=== PATIENT | male | born 1975 | race Two or more races ===

== ENCOUNTER 2018-08-07 22:57 | Inpatient (IN) | payer SELFPAY ==
[~2018-08-07] VITALS: Ht 170.2 cm; Wt 105.8 kg
--- NOTE | 2018-08-07 23:23 | PHYS DOC ---
Past Medical History Past Medical History: No Pertinent History Past Surgical History: No Surgical History Alcohol Use: Occasionally Drug Use: None Adult General Chief Complaint Chief Complaint: ABDOMINAL PAIN HPI HPI Patient is a 42 year old male who presents with right upper quadrant abdominal pain that started approximately 2 hours prior to arrival. Patient has had 6-7 episodes of vomiting which do seem to improve the pain since this started. No diarrhea. No fevers. No blood in the emesis. No change from his usual diet today. No alcohol today. Last alcohol was approximately 4 days ago. No sick family members or contacts. Nothing seems to make the discomfort worse. Patient rates the pain as 10 out of 10.[] Review of Systems Review of Systems Constitutional: Denies fever or chills [] Eyes: Denies change in visual acuity, redness, or eye pain [] HENT: Denies nasal congestion or sore throat [] Respiratory: Denies cough or shortness of breath [] Cardiovascular: No chest pain or palpitations[] GI: See history of present illness[] : Denies dysuria or hematuria [] Musculoskeletal: Denies back pain or joint pain [] Integument: Denies rash or skin lesions [] Neurologic: Denies headache, focal weakness or sensory changes [] Endocrine: Denies polyuria or polydipsia [] All other systems were reviewed and found to be within normal limits, except as documented in this note. Current Medications Current Medications Current Medications Medications (Trade) Dose Ordered Sig/Homer Start Time Stop Time Status Last Admin Dose Admin Hyoscyamine (Anaspaz) 0.125 mg ONCE ONCE 08/08/18 00:30 08/08/18 00:31 DC 08/08/18 00:13 0.125 MG Info (CONTRAST GIVEN -- Rx MONITORING) 1 each PRN DAILY PRN 08/08/18 00:15 08/10/18 00:14 Iohexol (Omnipaque 300 Mg/ml) 75 ml 1X ONCE 08/08/18 00:30 08/08/18 00:31 DC Ketorolac Tromethamine (Toradol 30mg Vial) 30 mg 1X ONCE 08/08/18 00:30 08/08/18 00:31 DC 08/08/18 00:13 30 MG Morphine Sulfate (Morphine Sulfate) 4 mg 1X ONCE 08/08/18 04:00 08/08/18 04:01 08/08/18 03:54 4 MG Piperacillin Sod/ Tazobactam Sod 3.375 gm/Sodium Chloride 50 ml @ 100 mls/hr 1X ONCE 08/08/18 04:00 08/08/18 04:29 UNV Prochlorperazine Edisylate (Compazine) 5 mg 1X ONCE 08/08/18 00:30 08/08/18 00:31 DC 08/08/18 00:13 5 MG Sodium Chloride 1,000 ml @ 1,000 mls/hr Q1H 08/08/18 00:30 08/08/18 01:29 DC 08/08/18 00:11 1,000 MLS/HR Allergies Allergies Allergies Coded Allergies Type Severity Reaction Last Updated Verified No Known Drug Allergies 08/07/18 No Physical Exam Physical Exam Constitutional: Well developed, well nourished, moderate discomfort, non-toxic appearance. [] HENT: Normocephalic, atraumatic, bilateral external ears normal, oropharynx moist, no oral exudates, nose normal. [] Eyes: PERRLA, EOMI, conjunctiva normal, no discharge. [] Neck: Normal range of motion, no tenderness, supple, no stridor. [] Cardiovascular:Heart rate regular rhythm, no murmur [] Lungs & Thorax: Bilateral breath sounds clear to auscultation [] Abdomen: Bowel sounds normal, soft, right upper quadrant tenderness, no McBurney 's point tenderness, and questionable Richard's sign, no rebound, no guarding, no rigidity, no masses, no pulsatile masses. [] Skin: Warm, dry, no erythema, no rash. [] Back: No tenderness, no CVA tenderness. [] Extremities: No tenderness, no cyanosis, no clubbing, ROM intact, no edema. [] Neurologic: Alert and oriented X 3, normal motor function, normal sensory function, no focal deficits noted. [] Psychologic: Affect normal, judgement normal, mood normal. [] Current Patient Data Vital Signs Vital Signs Date Time Temp Pulse Resp B/P (MAP) Pulse Ox O2 Delivery O2 Flow Rate FiO2 08/08/18 02:30 54 140/77 (98) 96 Room Air 08/08/18 00:36 20 08/07/18 23:07 97.7 97.7 Lab Values Laboratory Tests Test 08/07/18 23:46 08/08/18 01:25 White Blood Count 14.4 x10^3/uL (4.0-11.0) H Red Blood Count 5.15 x10^6/uL (4.30-5.70) Hemoglobin 15.8 g/dL (13.0-17.5) Hematocrit 46.9 % (39.0-53.0) Mean Corpuscular Volume 91 fL (79-100) Mean Corpuscular Hemoglobin 31 pg (25-35) Mean Corpuscular Hemoglobin Concent 34 g/dL (31-37) Red Cell Distribution Width 13.0 % (11.5-14.5) Platelet Count 306 x10^3/uL (140-400) Neutrophils (%) (Auto) 87 % (31-73) H Lymphocytes (%) (Auto) 10 % (24-48) L Monocytes (%) (Auto) 2 % (0-9) Eosinophils (%) (Auto) 0 % (0-3) Basophils (%) (Auto) 1 % (0-3) Neutrophils # (Auto) 12.6 x10^3uL (1.8-7.7) H Lymphocytes # (Auto) 1.4 x10^3/uL (1.0-4.8) Monocytes # (Auto) 0.3 x10^3/uL (0.0-1.1) Eosinophils # (Auto) 0.0 x10^3/uL (0.0-0.7) Basophils # (Auto) 0.1 x10^3/uL (0.0-0.2) Segmented Neutrophils % 89 % (35-66) H Lymphocytes % 11 % (24-48) L Toxic Granulation Slight Platelet Estimate Adequate (ADEQUATE) Prothrombin Time 12.4 SEC (11.7-14.0) Prothrombin Time INR 1.0 (0.8-1.1) Sodium Level 138 mmol/L (136-145) Potassium Level 4.0 mmol/L (3.5-5.1) Chloride Level 101 mmol/L (98-107) Carbon Dioxide Level 27 mmol/L (21-32) Anion Gap 10 (6-14) Blood Urea Nitrogen 18 mg/dL (8-26) Creatinine 0.9 mg/dL (0.7-1.3) Estimated GFR (Cockcroft-Gault) 93.5 BUN/Creatinine Ratio 20 (6-20) Glucose Level 137 mg/dL (70-99) H Calcium Level 9.8 mg/dL (8.5-10.1) Total Bilirubin 0.4 mg/dL (0.2-1.0) Aspartate Amino Transferase (AST) 64 U/L (15-37) H Alanine Aminotransferase (ALT) 116 U/L (16-63) H Alkaline Phosphatase 81 U/L (46-116) Total Protein 8.5 g/dL (6.4-8.2) H Albumin 3.8 g/dL (3.4-5.0) Albumin/Globulin Ratio 0.8 (1.0-1.7) L Lipase 150 U/L (73-393) Urine Collection Type Unknown Urine Color Yellow Urine Clarity Clear Urine pH 6.5 Urine Specific [place] 1.025 Urine Protein 100 mg/dL (NEG-TRACE) Urine Glucose (UA) Negative mg/dL (NEG) Urine Ketones (Stick) Negative mg/dL (NEG) Urine Blood Negative (NEG) Urine Nitrite Negative (NEG) Urine Bilirubin Negative (NEG) Urine Urobilinogen Dipstick 1.0 mg/dL (0.2 mg/dL) Urine Leukocyte Esterase Negative (NEG) Urine RBC 0 /HPF (0-2) Urine WBC Occ /HPF (0-4) Urine Squamous Epithelial Cells Occ /LPF Urine Bacteria 0 /HPF (0-FEW) Urine Mucus Mod /LPF Laboratory Tests 08/07/18 23:46 Laboratory Tests 08/07/18 23:46 EKG EKG [] Radiology/Procedures Radiology/Procedures EXAM: CT ABDOMEN/PELVIS WITHOUT CONTRAST. HISTORY: Right abdominal pain. TECHNIQUE: Computed tomography of the abdomen and pelvis was performed without intravenous contrast. COMPARISON: None. FINDINGS: Lung windows through the visualized portions of the bases reveal mild atelectasis. Bone windows reveal no suspicious lesions. The gallbladder is distended to 12 x 5.6 cm. There is no radiopaque cholelithiasis clear wall thickening or pericholecystic fluid. There is no biliary dilatation. Diffuse hepatic steatosis is at least mild. There is some fatty sparing about the gallbladder fossa. No focal hepatic lesions are seen without contrast. The spleen, pancreas, adrenal glands and kidneys are unremarkable without contrast. There are no renal or ureteral calculi. A moderate umbilical hernia contains only fat. The appendix is not inflamed. There is no small bowel obstruction. IMPRESSION: 1. Distended gallbladder without evidence of inflammation by CT. Sonography is more sensitive if there is persistent concern for acute cholecystitis. 2. At least mild diffuse hepatic steatosis. 3. Moderate umbilical hernia containing only fat. Ultrasound of the abdomen specifically the gallbladder shows gallbladder sludge , distended gallbladder, upper limits gallbladder wall thickening, trace of fluid adjacent to the gallbladder, focal fatty sparing, common bile duct upper limits of normal 5.9 mm, probe tender. Fatty liver, upper limits enlarged liver[ ] Course & Med Decision Making Course & Med Decision Making Pertinent Labs and Imaging studies reviewed. (See chart for details) ED course: Patient arrived, was placed in bed, tolerated exam well. Patient got minimal relief with nonnarcotic pain medicine so narcotic pain medicines were administered. After the CT and ultrasound he continued to have pain that was worsening over time so an additional dose of narcotic pain medicine was administered. Due to the findings on the ultrasound as well as the need for repeated parenteral narcotic pain medicines, consultation was made with hospitalist service for admission. Findings were discussed with the patient who voiced understanding. All questions were answered. Patient was admitted in improved condition. Medical decision making: Patient appears to have some dramatic: The lithiasis. No evidence of cholecystitis or cholangitis. No evidence of an obstruction or perforation. No evidence of kidney stone. No evidence of other significant intra -abdominal pathology.[] Dragon Disclaimer Dragon Disclaimer This electronic medical record was generated, in whole or in part, using a voice recognition dictation system. Departure Departure Impression: Primary Impression: Symptomatic cholelithiasis Additional Impression: Pain management Disposition: ADMITTED INPATIENT Admitting Physician: Harrison Back Condition: STABLE Problem Qualifiers CAYETANO DAVENPORT DO Aug 07, 2018 23:23
[2018-08-07 23:56] LABS: BASO # 0.1 x10^3/uL (0.0-0.2); BASO % 1 % (0-3); EOS % 0 % (0-3); HEMATOCRIT 46.9 % (39.0-53.0); HEMOGLOBIN 15.8 g/dL (13.0-17.5); LYMPH # 1.4 x10^3/uL (1.0-4.8); LYMPH % 10 % (24-48); MEAN CORPUSCULAR HEMOGLOBIN 31 pg (25-35); MEAN CORPUSCULAR HGB CONC 34 g/dL (31-37); MEAN CORPUSCULAR VOLUME 91 fL (79-100); MONO # 0.3 x10^3/uL (0.0-1.1); MONO % 2 % (0-9); NEUT # 12.6 x10^3uL (1.8-7.7); NEUT % 87 % (31-73); PLATELET COUNT 306 x10^3/uL (140-400); RED BLOOD COUNT 5.15 x10^6/uL (4.30-5.70); WHITE BLOOD COUNT 14.4 x10^3/uL (4.0-11.0)
[2018-08-08 00:04] LABS: CALCIUM 9.8 mg/dL (8.5-10.1); CREATININE 0.9 mg/dL (0.7-1.3); GFR 93.5; PROTHROMBIN TIME PATIENT 12.4 SEC (11.7-14.0)
[2018-08-08 00:09] LABS: ALBUMIN 3.8 g/dL (3.4-5.0); ALBUMIN/GLOBULIN RATIO 0.8 (1.0-1.7); TOTAL BILIRUBIN 0.4 mg/dL (0.2-1.0); TOTAL PROTEIN 8.5 g/dL (6.4-8.2)
[2018-08-08 00:15] LABS: % LYMPHS 11 % (24-48); % SEGS 89 % (35-66); PLT ESTIMATE ADEQUATE (ADEQUATE); TOXIC GRANULATION SLIGHT
[2018-08-08] MEDS ORDERED: CONTRAST GIVEN. MC PRN (00:15)
[2018-08-08] MEDS ORDERED: PROCHLORPERAZINE 10 MG/2 ML VIAL. IV ONE (00:30)
[2018-08-08] MEDS ORDERED: IV NORMAL SALINE 1000ML BAG 1,000 ML IV SCH (00:30)
[2018-08-08] MEDS ORDERED: KETOROLAC 30 MG/ML VIAL. IV ONE (00:30)
[2018-08-08] MEDS: IOHEXOL 300 MG/ML 100ML VIAL. IV ONE (00:30)
[2018-08-08] MEDS ORDERED: HYOSCYAMINE 0.125 MG TAB.RAPDIS PO ONE (00:30)
[2018-08-08] MEDS ORDERED: MORPHINE SULFATE 4 MG/ML VIAL. IV ONE ×3 (01:00→12:45)
[2018-08-08 01:41] LABS: BILIRUBIN,URINE NEGATIVE (NEG); CLARITY,URINE CLEAR; COLOR,URINE YELLOW; NITRITE,URINE NEGATIVE (NEG); PH,URINE 6.5; PROTEIN,URINE 100 mg/dL (NEG-TRACE)
[2018-08-08 01:52] LABS: BACTERIA,URINE 0 /HPF (0-FEW); RBC,URINE 0 /HPF (0-2); SQUAMOUS EPITHELIAL CELL,UR OCC /LPF; WBC,URINE OCC /HPF (0-4)
--- NOTE | 2018-08-08 02:11 | RAD ---
EXAM: CT ABDOMEN/PELVIS WITHOUT CONTRAST. HISTORY: Right abdominal pain. TECHNIQUE: Computed tomography of the abdomen and pelvis was performed without intravenous contrast. COMPARISON: None. FINDINGS: Lung windows through the visualized portions of the bases reveal mild atelectasis. Bone windows reveal no suspicious lesions. The gallbladder is distended to 12 x 5.6 cm. There is no radiopaque cholelithiasis clear wall thickening or pericholecystic fluid. There is no biliary dilatation. Diffuse hepatic steatosis is at least mild. There is some fatty sparing about the gallbladder fossa. No focal hepatic lesions are seen without contrast. The spleen, pancreas, adrenal glands and kidneys are unremarkable without contrast. There are no renal or ureteral calculi. A moderate umbilical hernia contains only fat. The appendix is not inflamed. There is no small bowel obstruction. IMPRESSION: 1. Distended gallbladder without evidence of inflammation by CT. Sonography is more sensitive if there is persistent concern for acute cholecystitis. 2. At least mild diffuse hepatic steatosis. 3. Moderate umbilical hernia containing only fat. *One or more of the following individualized dose reduction techniques were utilized for this examination: 1. Automated exposure control. 2. Adjustment of the mA and/or kV according to patient size. 3. Use of iterative reconstruction technique. Electronically signed by: Manuel Montalvo MD (08/08/2018 2:06 AM) [id number]
--- NOTE | 2018-08-08 04:05 | RAD ---
EXAM: RIGHT UPPER QUADRANT ULTRASOUND. HISTORY: Right upper quadrant pain. COMPARISON: Today's CT. FINDINGS: Sonographic evaluation of the right upper quadrant was performed. Hyperechogenicity of the hepatic parenchyma is consistent with diffuse hepatic steatosis. There is focal fatty sparing along the gallbladder fossa. The liver is enlarged spanning 18.6 cm. The gallbladder is distended measuring 11 x 5.1 cm. The gallbladder wall is mildly thickened at 4 mm. No stones are seen. There is trace pericholecystic fluid. There is a sonographic Richard sign. The common duct measures 6 mm. The pancreas is obscured by bowel gas and overlying structures. The right kidney measures 10.8 cm. Cortical thickness and echogenicity are preserved. There is no hydronephrosis. The visualized portions of the abdominal aorta and inferior vena cava are grossly patent and normal in caliber. IMPRESSION: 1. No cholelithiasis, but the gallbladder is distended with mild gallbladder wall thickening and pericholecystic fluid. Positive sonographic Richard sign. Correlate for evidence of infection to assess for acute cholecystitis. 2. Diffuse hepatic steatosis. Hepatomegaly. 3. The pancreas is obscured currently. It was unremarkable on concurrent noncontrast CT. Electronically signed by: Manuel Montalvo MD (08/08/2018 4:00 AM) [id number]
[2018-08-08] MEDS ORDERED: ONDANSETRON PF 4 MG/2 ML VIAL. IV PRN (04:15)
[2018-08-08] MEDS ORDERED: ACETAMINOPHEN 325 MG TABLET. PO PRN (04:15)
[2018-08-08] MEDS ORDERED: PIPERACILLIN/TAZOBACTAM 3.375 GM in IV NORMAL SALINE 50ML 50 ML IV ONE (04:30)
[2018-08-08 05:30] VITALS: BP 147/90
[2018-08-08] MEDS: MORPHINE SULFATE 4 MG/ML VIAL. IV PRN ×4 (05:47→22:21)
[2018-08-08] MEDS: IV NORMAL SALINE 1000ML BAG 1,000 ML IV SCH ×3 (05:47→20:30)
--- NOTE | 2018-08-08 06:57 | NUR ---
PT ARRIVED TO UNIT, ADMISSION QUESTIONS ASKED, PT DENIED TAKING ANY HOME MEDICATIONS.
[2018-08-08 07:00] VITALS: BP 154/89
--- NOTE | 2018-08-08 09:28 | PDOC2 ---
GI CONSULT Reason For Consult: Symptomatic cholelithiasis HPI: HPI: 42 y/o male admitted through ER. Acute onset of RUQ constant pressure associated w/ vomiting began last night after eating chicken and beans while watching the Super Bowl. No similar symptoms in the past, no radiation of pain. Labs note WBC 14.4, bili 0.4, AST 64, ALT 116, Alk Phos 81, lipase 150. On CT and US: distended GB w/ mild GB wall thickening and pericholecystic fluid and diffuse hepatic steatosis w/ hepatomegaly. No gallstones, CBD was 6mm. Note made of positive Richard's sign. Surgical consult pending. Denies reflux/heartburn, dysphagia, chronic n/v or chronic abd pain, diarrhea, constipation, hematochezia, melena, change in appetite, or weight loss. Thinks saw a streak of red blood after vomiting 5-6 times. No GB, liver, or pancreas history. No previous EGD or colonoscopy. Denies h/o PUD. No NSAIDs. PMH: PMH: hydrocele repair FH: Family History: No pertinent hx (denies GB disease) Social History: Smoke: No ALCOHOL: other (12 pack of beer on the weekends) Drugs: None ROS: GEN: Denies fevers, chills, sweats HEENT: Denies blurred vision, sore throat CV: Denies chest pain RESP: Denies shortness of air, cough GI: Per HPI : Denies hematuria, dysuria ENDO: Denies weight changes NEURO: Denies confusion, dizziness MSK: Denies weakness, joint pain/swelling SKIN: Denies jaundice, pruritus Vitals: Vitals: Vital Signs Date Time Temp Pulse Resp B/P (MAP) Pulse Ox O2 Delivery O2 Flow Rate FiO2 08/08/18 09:10 20 94 Room Air 08/08/18 07:00 98.0 57 154/89 (110) 98.0 Labs: Labs: Laboratory Tests Test 08/07/18 23:46 08/08/18 01:25 White Blood Count 14.4 x10^3/uL (4.0-11.0) Red Blood Count 5.15 x10^6/uL (4.30-5.70) Hemoglobin 15.8 g/dL (13.0-17.5) Hematocrit 46.9 % (39.0-53.0) Mean Corpuscular Volume 91 fL (79-100) Mean Corpuscular Hemoglobin 31 pg (25-35) Mean Corpuscular Hemoglobin Concent 34 g/dL (31-37) Red Cell Distribution Width 13.0 % (11.5-14.5) Platelet Count 306 x10^3/uL (140-400) Neutrophils (%) (Auto) 87 % (31-73) Lymphocytes (%) (Auto) 10 % (24-48) Monocytes (%) (Auto) 2 % (0-9) Eosinophils (%) (Auto) 0 % (0-3) Basophils (%) (Auto) 1 % (0-3) Neutrophils # (Auto) 12.6 x10^3uL (1.8-7.7) Lymphocytes # (Auto) 1.4 x10^3/uL (1.0-4.8) Monocytes # (Auto) 0.3 x10^3/uL (0.0-1.1) Eosinophils # (Auto) 0.0 x10^3/uL (0.0-0.7) Basophils # (Auto) 0.1 x10^3/uL (0.0-0.2) Segmented Neutrophils % 89 % (35-66) Lymphocytes % 11 % (24-48) Toxic Granulation Slight Platelet Estimate Adequate (ADEQUATE) Prothrombin Time 12.4 SEC (11.7-14.0) Prothromb Time International Ratio 1.0 (0.8-1.1) Sodium Level 138 mmol/L (136-145) Potassium Level 4.0 mmol/L (3.5-5.1) Chloride Level 101 mmol/L (98-107) Carbon Dioxide Level 27 mmol/L (21-32) Anion Gap 10 (6-14) Blood Urea Nitrogen 18 mg/dL (8-26) Creatinine 0.9 mg/dL (0.7-1.3) Estimated GFR (Cockcroft-Gault) 93.5 BUN/Creatinine Ratio 20 (6-20) Glucose Level 137 mg/dL (70-99) Calcium Level 9.8 mg/dL (8.5-10.1) Total Bilirubin 0.4 mg/dL (0.2-1.0) Aspartate Amino Transf (AST/SGOT) 64 U/L (15-37) Alanine Aminotransferase (ALT/SGPT) 116 U/L (16-63) Alkaline Phosphatase 81 U/L (46-116) Total Protein 8.5 g/dL (6.4-8.2) Albumin 3.8 g/dL (3.4-5.0) Albumin/Globulin Ratio 0.8 (1.0-1.7) Lipase 150 U/L (73-393) Urine Collection Type Unknown Urine Color Yellow Urine Clarity Clear Urine pH 6.5 Urine Specific [place] 1.025 Urine Protein 100 mg/dL (NEG-TRACE) Urine Glucose (UA) Negative mg/dL (NEG) Urine Ketones (Stick) Negative mg/dL (NEG) Urine Blood Negative (NEG) Urine Nitrite Negative (NEG) Urine Bilirubin Negative (NEG) Urine Urobilinogen Dipstick 1.0 mg/dL (0.2 mg/dL) Urine Leukocyte Esterase Negative (NEG) Urine RBC 0 /HPF (0-2) Urine WBC Occ /HPF (0-4) Urine Squamous Epithelial Cells Occ /LPF Urine Bacteria 0 /HPF (0-FEW) Urine Mucus Mod /LPF Allergies: Coded Allergies: No Known Drug Allergies (Unverified , 08/07/18) Medications: Current Medications Medications (Trade) Dose Ordered Sig/Homer Route PRN Reason Start Time Stop Time Status Last Admin Dose Admin Sodium Chloride 1,000 ml @ 1,000 mls/hr Q1H IV 08/08/18 00:30 08/08/18 01:29 DC 08/08/18 00:11 Prochlorperazine Edisylate (Compazine) 5 mg 1X ONCE IV 08/08/18 00:30 08/08/18 00:31 DC 08/08/18 00:13 Ketorolac Tromethamine (Toradol 30mg Vial) 30 mg 1X ONCE IV 08/08/18 00:30 08/08/18 00:31 DC 08/08/18 00:13 Hyoscyamine (Anaspaz) 0.125 mg ONCE ONCE PO 08/08/18 00:30 08/08/18 00:31 DC 08/08/18 00:13 Morphine Sulfate (Morphine Sulfate) 4 mg 1X ONCE IV 08/08/18 01:00 08/08/18 01:01 DC 08/08/18 00:36 Morphine Sulfate (Morphine Sulfate) 4 mg 1X ONCE IV 08/08/18 04:00 08/08/18 04:01 DC 08/08/18 03:54 Piperacillin Sod/ Tazobactam Sod 3.375 gm/Sodium Chloride 50 ml @ 100 mls/hr 1X ONCE IV 08/08/18 04:30 08/08/18 04:59 DC 08/08/18 04:14 Morphine Sulfate (Morphine Sulfate) 4 mg PRN Q2HR PRN IV SEVERE PAIN 08/08/18 04:15 08/09/18 04:14 08/08/18 09:10 Sodium Chloride 1,000 ml @ 125 mls/hr Q8H IV 08/08/18 04:30 08/09/18 04:29 08/08/18 05:47 Imaging: Imaging: CT A/P IMPRESSION: 1. Distended gallbladder without evidence of inflammation by CT. Sonography is more sensitive if there is persistent concern for acute cholecystitis. 2. At least mild diffuse hepatic steatosis. 3. Moderate umbilical hernia containing only fat. RUQ US IMPRESSION: 1. No cholelithiasis, but the gallbladder is distended with mild gallbladder wall thickening and pericholecystic fluid. Positive sonographic Richard sign. Correlate for evidence of infection to assess for acute cholecystitis. 2. Diffuse hepatic steatosis. Hepatomegaly. 3. The pancreas is obscured currently. It was unremarkable on concurrent noncontrast CT. PE: GEN: NAD HEENT: Atraumatic, PERRL LUNGS: CTAB HEART: RRR ABD: +quiet BS, soft, RUQ quite tender to light palpation EXTREMITY: No edema SKIN: No rashes, no jaundice NEURO/PSYCH: A & O �3 A/P: A/P: RUQ pain, n/v Leukocytosis, mild transaminitis GB distention and wall thickening, hepatic steatosis - CBD 6mm CRC screen - average risk -- Await surgical thoughts re: possible cholecystectomy/IOC. Follow LFTs. Empiric acid-asp net software developer. KATRIN BURTON Aug 08, 2018 09:28
[2018-08-08 11:04] VITALS: BP 151/93
--- NOTE | 2018-08-08 12:23 | HP ---
ADMIT DATE: 08/08/2018 CHIEF COMPLAINT: Abdominal pain. HISTORY OF PRESENT ILLNESS: The patient is a pleasant 42-year-old male presented to the ER with abdominal pain. It is in the right upper quadrant, rated at 10/10. He has associated nausea. It has been occurring for several days. Home meds did not help. It is worse with food. I discussed the case with ER physician. It appears the patient has symptomatic gallbladder sludge. We are going to admit the patient and consult GI and General Surgery. PAST MEDICAL HISTORY: Hydrocele repair. FAMILY HISTORY: Hypertension. SOCIAL HISTORY: Works in construction. He does not drink or take drugs. No smoking. MEDICATIONS: Reviewed, please refer to the MRAD. REVIEW OF SYSTEMS: GENERAL: No history of weight change, weakness or fevers. SKIN: No bruising, hair changes or rashes. EYES: No blurred, double or loss of vision. NOSE AND THROAT: No history of nosebleeds, hoarseness or sore throat. HEART: No history of palpitations, chest pain or shortness of breath on exertion. LUNGS: Denies cough, hemoptysis, wheezing or shortness of breath. GASTROINTESTINAL: He complains of abdominal pain and nausea. GENITOURINARY: No history of frequency, urgency, hesitancy or nocturia. NEUROLOGIC: Denies history of numbness, tingling, tremor or weakness. PSYCHIATRIC: No history of panic, anxiety or depression. ENDOCRINE: No history of heat or cold intolerance, polyuria or polydipsia. EXTREMITIES: Denies muscle weakness, joint pain, pain on walking or stiffness. PHYSICAL EXAMINATION: VITAL SIGNS: Temperature afebrile, pulse 98, respirations 18, blood pressure 144/90. GENERAL: He is alert, cooperative. HEART: Normal S1, S2. LUNGS: Clear. ABDOMEN: Soft, tender in the right quadrant. There is an umbilical hernia. ENDOCRINE: No thyromegaly. LYMPHATICS: No cervical nodes. HEMATOPOIETIC: No bruising. PSYCHIATRIC: He is stable. EXTREMITIES: No edema. LABORATORY DATA: White count is 14. Electrolytes are normal. AST and ALT are high at 64 and 116 respectively. ASSESSMENT AND PLAN: Symptomatic gallbladder sludge. The patient has been admitted. We are going to give him IV fluids, IV Zofran, p.r.n. narcotics, consult GI and consult General Surgery. NIAL Jennifer SANCHEZ DO DR: Shelia JOB#: [id number] / [id number]
[2018-08-08] MEDS ORDERED: MORPHINE SULFATE 4 MG/ML VIAL. ONE (12:59)
--- NOTE | 2018-08-08 14:24 | PDOC2 ---
CONSULT Date of Consult Date of Consult DATE: 08/08/18 TIME: 14:17 Reason for Consult Reason for Consult: Abdominal pain Identification/Chief Complaint Chief Complaint Abd pain Source Source: Patient History of Present Illness Reason for Visit: 42 yo male came to the ED with complaints of RUQ abdominal pain for several hours after eating. Denies N/V Imaging did not show gallstones but thickened gallbladder wall. Past Medical History Cardiovascular: No pertinent hx Pulmonary: No pertinent hx GI: No pertinent hx Heme/Onc: No pertinent hx Hepatobiliary: No pertinent hx Psych: No pertinent hx Rheumatologic: No pertinent hx Infectious disease: No pertinent hx ENT: No pertinent hx Renal/: No pertinent hx Endocrine: No pertinent hx Dermatology: No pertinent hx Past Surgical History Past Surgical History: No pertinent history Family History Family History: No Significant Social History No ALCOHOL: other (12 pack of beer on the weekends) Drugs: None Current Problem List Problem List Problems Medical Problems: (1) Pain management Status: Acute Current Medications Current Medications Current Medications Sodium Chloride 1,000 ml @ 1,000 mls/hr Q1H IV Last administered on 08/08/18at 00:11; Start 08/08/18 at 00:30; Stop 08/08/18 at 01:29; Status DC Prochlorperazine Edisylate (Compazine) 5 mg 1X ONCE IV Last administered on 08/08/18at 00:13; Start 08/08/18 at 00:30; Stop 08/08/18 at 00:31; Status DC Ketorolac Tromethamine (Toradol 30mg Vial) 30 mg 1X ONCE IV Last administered on 08/08/18at 00:13; Start 08/08/18 at 00:30; Stop 08/08/18 at 00:31; Status DC Hyoscyamine (Anaspaz) 0.125 mg ONCE ONCE PO Last administered on 08/08/18at 00: 13; Start 08/08/18 at 00:30; Stop 08/08/18 at 00:31; Status DC Iohexol (Omnipaque 300 Mg/ml) 75 ml 1X ONCE IV ; Start 08/08/18 at 00:30; Stop 08/08/18 at 00:31; Status DC Info (CONTRAST GIVEN -- Rx MONITORING) 1 each PRN DAILY PRN MC SEE COMMENTS; Start 08/08/18 at 00:15; Stop 08/10/18 at 00:14 Morphine Sulfate (Morphine Sulfate) 4 mg 1X ONCE IV Last administered on at 00:36; Start 08/08/18 at 01:00; Stop 08/08/18 at 01:01; Status DC Morphine Sulfate (Morphine Sulfate) 4 mg 1X ONCE IV Last administered on at 03:54; Start 08/08/18 at 04:00; Stop 08/08/18 at 04:01; Status DC Piperacillin Sod/ Tazobactam Sod 3.375 gm/Sodium Chloride 50 ml @ 100 mls/hr 1X ONCE IV Last administered on 08/08/18at 04:14; Start 08/08/18 at 04:30; Stop 08/08/18 at 04:59; Status DC Ondansetron HCl (Zofran) 4 mg PRN Q8HRS PRN IV NAUSEA/VOMITING 1ST CHOICE; Start 08/08/18 at 04:15; Stop 08/09/18 at 04:14 Morphine Sulfate (Morphine Sulfate) 4 mg PRN Q2HR PRN IV SEVERE PAIN Last administered on 08/08/18at 09:10; Start 08/08/18 at 04:15; Stop 08/09/18 at 04:14 Sodium Chloride 1,000 ml @ 125 mls/hr Q8H IV Last administered on 08/08/18at 05: 47; Start 08/08/18 at 04:30; Stop 08/09/18 at 04:29 Acetaminophen (Tylenol) 650 mg PRN Q4HRS PRN PO FEVER; Start 08/08/18 at 04:15; Stop 08/09/18 at 04:14 Pantoprazole Sodium (PROTONIX VIAL for IV PUSH) 40 mg DAILYAC IVP ; Start at 10:00 Morphine Sulfate (Morphine Sulfate) 4 mg 1X ONCE IV Last administered on at 13:08; Start 08/08/18 at 12:45; Stop 08/08/18 at 13:00; Status DC Morphine Sulfate (Morphine Sulfate) 4 mg STK-MED ONCE .ROUTE ; Start 08/08/18 at 12:59; Stop 08/08/18 at 13:01; Status DC Allergies Allergies: Coded Allergies: No Known Drug Allergies (Unverified , 08/07/18) ROS Gastrointestinal: Yes Abdominal Pain Physical Exam General: Alert, Oriented X3, Cooperative, mild distress HEENT: Atraumatic, PERRLA, EOMI Lungs: Clear to auscultation, Normal air movement Heart: Regular rate, No murmurs Abdomen: Normal bowel sounds, Soft, Other (TTP RUQ) Extremities: No edema Skin: No significant lesion Neuro: Normal speech Psych/Mental Status: Mental status NL Vitals VITALS Vital Signs Date Time Temp Pulse Resp B/P (MAP) Pulse Ox O2 Delivery O2 Flow Rate FiO2 08/08/18 13:27 18 Room Air 08/08/18 11:04 98.3 64 151/93 (112) 95 98.3 Labs Labs Laboratory Tests Test 08/07/18 23:46 08/08/18 01:25 White Blood Count 14.4 x10^3/uL (4.0-11.0) Red Blood Count 5.15 x10^6/uL (4.30-5.70) Hemoglobin 15.8 g/dL (13.0-17.5) Hematocrit 46.9 % (39.0-53.0) Mean Corpuscular Volume 91 fL (79-100) Mean Corpuscular Hemoglobin 31 pg (25-35) Mean Corpuscular Hemoglobin Concent 34 g/dL (31-37) Red Cell Distribution Width 13.0 % (11.5-14.5) Platelet Count 306 x10^3/uL (140-400) Neutrophils (%) (Auto) 87 % (31-73) Lymphocytes (%) (Auto) 10 % (24-48) Monocytes (%) (Auto) 2 % (0-9) Eosinophils (%) (Auto) 0 % (0-3) Basophils (%) (Auto) 1 % (0-3) Neutrophils # (Auto) 12.6 x10^3uL (1.8-7.7) Lymphocytes # (Auto) 1.4 x10^3/uL (1.0-4.8) Monocytes # (Auto) 0.3 x10^3/uL (0.0-1.1) Eosinophils # (Auto) 0.0 x10^3/uL (0.0-0.7) Basophils # (Auto) 0.1 x10^3/uL (0.0-0.2) Segmented Neutrophils % 89 % (35-66) Lymphocytes % 11 % (24-48) Toxic Granulation Slight Platelet Estimate Adequate (ADEQUATE) Prothrombin Time 12.4 SEC (11.7-14.0) Prothromb Time International Ratio 1.0 (0.8-1.1) Sodium Level 138 mmol/L (136-145) Potassium Level 4.0 mmol/L (3.5-5.1) Chloride Level 101 mmol/L (98-107) Carbon Dioxide Level 27 mmol/L (21-32) Anion Gap 10 (6-14) Blood Urea Nitrogen 18 mg/dL (8-26) Creatinine 0.9 mg/dL (0.7-1.3) Estimated GFR (Cockcroft-Gault) 93.5 BUN/Creatinine Ratio 20 (6-20) Glucose Level 137 mg/dL (70-99) Calcium Level 9.8 mg/dL (8.5-10.1) Total Bilirubin 0.4 mg/dL (0.2-1.0) Aspartate Amino Transf (AST/SGOT) 64 U/L (15-37) Alanine Aminotransferase (ALT/SGPT) 116 U/L (16-63) Alkaline Phosphatase 81 U/L (46-116) Total Protein 8.5 g/dL (6.4-8.2) Albumin 3.8 g/dL (3.4-5.0) Albumin/Globulin Ratio 0.8 (1.0-1.7) Lipase 150 U/L (73-393) Urine Collection Type Unknown Urine Color Yellow Urine Clarity Clear Urine pH 6.5 Urine Specific [place] 1.025 Urine Protein 100 mg/dL (NEG-TRACE) Urine Glucose (UA) Negative mg/dL (NEG) Urine Ketones (Stick) Negative mg/dL (NEG) Urine Blood Negative (NEG) Urine Nitrite Negative (NEG) Urine Bilirubin Negative (NEG) Urine Urobilinogen Dipstick 1.0 mg/dL (0.2 mg/dL) Urine Leukocyte Esterase Negative (NEG) Urine RBC 0 /HPF (0-2) Urine WBC Occ /HPF (0-4) Urine Squamous Epithelial Cells Occ /LPF Urine Bacteria 0 /HPF (0-FEW) Urine Mucus Mod /LPF Laboratory Tests Test 08/07/18 23:46 08/08/18 01:25 White Blood Count 14.4 x10^3/uL (4.0-11.0) Red Blood Count 5.15 x10^6/uL (4.30-5.70) Hemoglobin 15.8 g/dL (13.0-17.5) Hematocrit 46.9 % (39.0-53.0) Mean Corpuscular Volume 91 fL (79-100) Mean Corpuscular Hemoglobin 31 pg (25-35) Mean Corpuscular Hemoglobin Concent 34 g/dL (31-37) Red Cell Distribution Width 13.0 % (11.5-14.5) Platelet Count 306 x10^3/uL (140-400) Neutrophils (%) (Auto) 87 % (31-73) Lymphocytes (%) (Auto) 10 % (24-48) Monocytes (%) (Auto) 2 % (0-9) Eosinophils (%) (Auto) 0 % (0-3) Basophils (%) (Auto) 1 % (0-3) Neutrophils # (Auto) 12.6 x10^3uL (1.8-7.7) Lymphocytes # (Auto) 1.4 x10^3/uL (1.0-4.8) Monocytes # (Auto) 0.3 x10^3/uL (0.0-1.1) Eosinophils # (Auto) 0.0 x10^3/uL (0.0-0.7) Basophils # (Auto) 0.1 x10^3/uL (0.0-0.2) Segmented Neutrophils % 89 % (35-66) Lymphocytes % 11 % (24-48) Toxic Granulation Slight Platelet Estimate Adequate (ADEQUATE) Prothrombin Time 12.4 SEC (11.7-14.0) Prothromb Time International Ratio 1.0 (0.8-1.1) Sodium Level 138 mmol/L (136-145) Potassium Level 4.0 mmol/L (3.5-5.1) Chloride Level 101 mmol/L (98-107) Carbon Dioxide Level 27 mmol/L (21-32) Anion Gap 10 (6-14) Blood Urea Nitrogen 18 mg/dL (8-26) Creatinine 0.9 mg/dL (0.7-1.3) Estimated GFR (Cockcroft-Gault) 93.5 BUN/Creatinine Ratio 20 (6-20) Glucose Level 137 mg/dL (70-99) Calcium Level 9.8 mg/dL (8.5-10.1) Total Bilirubin 0.4 mg/dL (0.2-1.0) Aspartate Amino Transf (AST/SGOT) 64 U/L (15-37) Alanine Aminotransferase (ALT/SGPT) 116 U/L (16-63) Alkaline Phosphatase 81 U/L (46-116) Total Protein 8.5 g/dL (6.4-8.2) Albumin 3.8 g/dL (3.4-5.0) Albumin/Globulin Ratio 0.8 (1.0-1.7) Lipase 150 U/L (73-393) Urine Collection Type Unknown Urine Color Yellow Urine Clarity Clear Urine pH 6.5 Urine Specific [place] 1.025 Urine Protein 100 mg/dL (NEG-TRACE) Urine Glucose (UA) Negative mg/dL (NEG) Urine Ketones (Stick) Negative mg/dL (NEG) Urine Blood Negative (NEG) Urine Nitrite Negative (NEG) Urine Bilirubin Negative (NEG) Urine Urobilinogen Dipstick 1.0 mg/dL (0.2 mg/dL) Urine Leukocyte Esterase Negative (NEG) Urine RBC 0 /HPF (0-2) Urine WBC Occ /HPF (0-4) Urine Squamous Epithelial Cells Occ /LPF Urine Bacteria 0 /HPF (0-FEW) Urine Mucus Mod /LPF Assessment/Plan Assessment/Plan Biliary dyskinesia vs cholecystitis Will obtain HIDA scan, tentively scheduled for L/S Cholecystectomy tomorrow JESSICA WAGNER MD Aug 08, 2018 14:24
[2018-08-08 15:00] VITALS: BP 146/92
[2018-08-08] MEDS: PANTOPRAZOLE IV PUSH 40 MG VIAL. IVP SCH (15:08)
--- NOTE | 2018-08-08 15:28 | NUR ---
SW following for discharge planning. Discussed with RN, pt is from home with family. RN advised no SW needs at this time. SW will continue to follow.
[2018-08-08 18:42] VITALS: BP 142/89
[2018-08-08 23:00] VITALS: BP 143/80
[2018-08-09] VITALS (10 sets, daily range): BP systolic 94–155; BP diastolic 42–89
[2018-08-09] MEDS: MORPHINE SULFATE 4 MG/ML VIAL. IV PRN ×6 (02:43→20:39)
[2018-08-09 06:26] LABS: BASO # 0.1 x10^3/uL (0.0-0.2); BASO % 0 % (0-3); EOS % 0 % (0-3); HEMATOCRIT 43.8 % (39.0-53.0); HEMOGLOBIN 14.7 g/dL (13.0-17.5); LYMPH # 1.2 x10^3/uL (1.0-4.8); LYMPH % 7 % (24-48); MEAN CORPUSCULAR HEMOGLOBIN 31 pg (25-35); MEAN CORPUSCULAR HGB CONC 34 g/dL (31-37); MEAN CORPUSCULAR VOLUME 91 fL (79-100); MONO # 1.1 x10^3/uL (0.0-1.1); MONO % 6 % (0-9); NEUT # 15.8 x10^3uL (1.8-7.7); NEUT % 87 % (31-73); PLATELET COUNT 262 x10^3/uL (140-400); RED BLOOD COUNT 4.82 x10^6/uL (4.30-5.70); RED CELL DISTRIBUTION WIDTH 13.1 % (11.5-14.5); WHITE BLOOD COUNT 18.2 x10^3/uL (4.0-11.0)
[2018-08-09 06:45] LABS: ALBUMIN/GLOBULIN RATIO 0.7 (1.0-1.7); CALCIUM 8.8 mg/dL (8.5-10.1); CREATININE 0.8 mg/dL (0.7-1.3); GFR 107.1; POTASSIUM 3.6 mmol/L (3.5-5.1); TOTAL BILIRUBIN 1.4 mg/dL (0.2-1.0); TOTAL PROTEIN 7.4 g/dL (6.4-8.2)
[2018-08-09] MEDS ORDERED: HYDROmorphone 2 MG/ML VIAL IV PRN (07:00)
[2018-08-09] MEDS ORDERED: fentaNYL PF VIAL 100 MCG/2 ML VIAL IV PRN ×2 (07:00)
[2018-08-09] MEDS ORDERED: PROCHLORPERAZINE 10 MG/2 ML VIAL. IV PRN (07:00)
[2018-08-09] MEDS ORDERED: IV RINGERS,LACTATED 1000ML 1,000 ML IV SCH (07:00)
[2018-08-09] MEDS ORDERED: MORPHINE SULFATE 4 MG/ML VIAL. IV PRN (07:00)
[2018-08-09] MEDS ORDERED: LIDOCAINE 1% PF 2 ML VIAL. ID PRN (07:00)
[2018-08-09] MEDS ORDERED: ONDANSETRON PF 4 MG/2 ML VIAL. IV PRN (07:00)
[2018-08-09] MEDS: PANTOPRAZOLE IV PUSH 40 MG VIAL. IVP SCH (08:23)
--- NOTE | 2018-08-09 09:57 | PDOC ---
PROGRESS NOTES Chief Complaint Chief Complaint Right-Upper Quadrant Abdominal Pain. History of Present Illness History of Present Illness pt still reporting significant RUQ abdominal pain c/ associated nausea. worse with food. 08/08/18: U/S and CT (abd/pelv) showed gallbladder wall thickening without stones; gallbladder sludge. awaiting HIDA scan report. leukocytosis with upward trend. 18.2k today. GI on-board. Vitals Vitals Vital Signs Date Time Temp Pulse Resp B/P (MAP) Pulse Ox O2 Delivery O2 Flow Rate FiO2 08/09/18 08:58 16 Room Air 08/09/18 07:00 98.2 81 139/84 (102) 93 98.2 Physical Exam General: Alert, Oriented X3, Cooperative, mild distress Heart: Regular rate, No murmurs Abdomen: Normal bowel sounds, Soft, Other (TTP RUQ) Extremities: No edema Skin: No significant lesion Labs LABS Laboratory Tests Test 08/09/18 05:50 08/09/18 05:55 White Blood Count 18.2 x10^3/uL (4.0-11.0) Red Blood Count 4.82 x10^6/uL (4.30-5.70) Hemoglobin 14.7 g/dL (13.0-17.5) Hematocrit 43.8 % (39.0-53.0) Mean Corpuscular Volume 91 fL (79-100) Mean Corpuscular Hemoglobin 31 pg (25-35) Mean Corpuscular Hemoglobin Concent 34 g/dL (31-37) Red Cell Distribution Width 13.1 % (11.5-14.5) Platelet Count 262 x10^3/uL (140-400) Neutrophils (%) (Auto) 87 % (31-73) Lymphocytes (%) (Auto) 7 % (24-48) Monocytes (%) (Auto) 6 % (0-9) Eosinophils (%) (Auto) 0 % (0-3) Basophils (%) (Auto) 0 % (0-3) Neutrophils # (Auto) 15.8 x10^3uL (1.8-7.7) Lymphocytes # (Auto) 1.2 x10^3/uL (1.0-4.8) Monocytes # (Auto) 1.1 x10^3/uL (0.0-1.1) Eosinophils # (Auto) 0.0 x10^3/uL (0.0-0.7) Basophils # (Auto) 0.1 x10^3/uL (0.0-0.2) Sodium Level 134 mmol/L (136-145) Potassium Level 3.6 mmol/L (3.5-5.1) Chloride Level 98 mmol/L (98-107) Carbon Dioxide Level 25 mmol/L (21-32) Anion Gap 11 (6-14) Blood Urea Nitrogen 7 mg/dL (8-26) Creatinine 0.8 mg/dL (0.7-1.3) Estimated GFR (Cockcroft-Gault) 107.1 BUN/Creatinine Ratio 9 (6-20) Glucose Level 117 mg/dL (70-99) Calcium Level 8.8 mg/dL (8.5-10.1) Total Bilirubin 1.4 mg/dL (0.2-1.0) Aspartate Amino Transf (AST/SGOT) 28 U/L (15-37) Alanine Aminotransferase (ALT/SGPT) 70 U/L (16-63) Alkaline Phosphatase 70 U/L (46-116) Total Protein 7.4 g/dL (6.4-8.2) Albumin 3.0 g/dL (3.4-5.0) Albumin/Globulin Ratio 0.7 (1.0-1.7) Lipase 112 U/L (73-393) Review of Systems Review of Systems CHEST: denies chest pain, denies palpitations. LUNGS: denies shortness of breath, denies wheezing. no wheezing, no rhonchi, rales, or crackles. Assessment and Plan Assessmemt and Plan Assessment 1. symptomatic gallbladder sludge: RUQ pain. 2. leukocytosis (18.2k). 3. HIDA scan: awaiting report. Plan 1. will he need surgery? 2. continue IV fluids. 3. continue pain medications. 4. continue anti-emetics. 5. re-check labs tommorrow 6. order lipase level. Comment Review of Relevant I have reviewed the following items ewa (where applicable) has been applied. Labs Laboratory Tests Test 08/07/18 23:46 08/08/18 01:25 08/09/18 05:50 08/09/18 05:55 White Blood Count 14.4 x10^3/uL (4.0-11.0) 18.2 x10^3/uL (4.0-11.0) Red Blood Count 5.15 x10^6/uL (4.30-5.70) 4.82 x10^6/uL (4.30-5.70) Hemoglobin 15.8 g/dL (13.0-17.5) 14.7 g/dL (13.0-17.5) Hematocrit 46.9 % (39.0-53.0) 43.8 % (39.0-53.0) Mean Corpuscular Volume 91 fL (79-100) 91 fL (79-100) Mean Corpuscular Hemoglobin 31 pg (25-35) 31 pg (25-35) Mean Corpuscular Hemoglobin Concent 34 g/dL (31-37) 34 g/dL (31-37) Red Cell Distribution Width 13.0 % (11.5-14.5) 13.1 % (11.5-14.5) Platelet Count 306 x10^3/uL (140-400) 262 x10^3/uL (140-400) Neutrophils (%) (Auto) 87 % (31-73) 87 % (31-73) Lymphocytes (%) (Auto) 10 % (24-48) 7 % (24-48) Monocytes (%) (Auto) 2 % (0-9) 6 % (0-9) Eosinophils (%) (Auto) 0 % (0-3) 0 % (0-3) Basophils (%) (Auto) 1 % (0-3) 0 % (0-3) Neutrophils # (Auto) 12.6 x10^3uL (1.8-7.7) 15.8 x10^3uL (1.8-7.7) Lymphocytes # (Auto) 1.4 x10^3/uL (1.0-4.8) 1.2 x10^3/uL (1.0-4.8) Monocytes # (Auto) 0.3 x10^3/uL (0.0-1.1) 1.1 x10^3/uL (0.0-1.1) Eosinophils # (Auto) 0.0 x10^3/uL (0.0-0.7) 0.0 x10^3/uL (0.0-0.7) Basophils # (Auto) 0.1 x10^3/uL (0.0-0.2) 0.1 x10^3/uL (0.0-0.2) Segmented Neutrophils % 89 % (35-66) Lymphocytes % 11 % (24-48) Toxic Granulation Slight Platelet Estimate Adequate (ADEQUATE) Prothrombin Time 12.4 SEC (11.7-14.0) Prothromb Time International Ratio 1.0 (0.8-1.1) Sodium Level 138 mmol/L (136-145) 134 mmol/L (136-145) Potassium Level 4.0 mmol/L (3.5-5.1) 3.6 mmol/L (3.5-5.1) Chloride Level 101 mmol/L (98-107) 98 mmol/L (98-107) Carbon Dioxide Level 27 mmol/L (21-32) 25 mmol/L (21-32) Anion Gap 10 (6-14) 11 (6-14) Blood Urea Nitrogen 18 mg/dL (8-26) 7 mg/dL (8-26) Creatinine 0.9 mg/dL (0.7-1.3) 0.8 mg/dL (0.7-1.3) Estimated GFR (Cockcroft-Gault) 93.5 107.1 BUN/Creatinine Ratio 20 (6-20) 9 (6-20) Glucose Level 137 mg/dL (70-99) 117 mg/dL (70-99) Calcium Level 9.8 mg/dL (8.5-10.1) 8.8 mg/dL (8.5-10.1) Total Bilirubin 0.4 mg/dL (0.2-1.0) 1.4 mg/dL (0.2-1.0) Aspartate Amino Transf (AST/SGOT) 64 U/L (15-37) 28 U/L (15-37) Alanine Aminotransferase (ALT/SGPT) 116 U/L (16-63) 70 U/L (16-63) Alkaline Phosphatase 81 U/L (46-116) 70 U/L (46-116) Total Protein 8.5 g/dL (6.4-8.2) 7.4 g/dL (6.4-8.2) Albumin 3.8 g/dL (3.4-5.0) 3.0 g/dL (3.4-5.0) Albumin/Globulin Ratio 0.8 (1.0-1.7) 0.7 (1.0-1.7) Lipase 150 U/L (73-393) 112 U/L (73-393) Urine Collection Type Unknown Urine Color Yellow Urine Clarity Clear Urine pH 6.5 Urine Specific [place] 1.025 Urine Protein 100 mg/dL (NEG-TRACE) Urine Glucose (UA) Negative mg/dL (NEG) Urine Ketones (Stick) Negative mg/dL (NEG) Urine Blood Negative (NEG) Urine Nitrite Negative (NEG) Urine Bilirubin Negative (NEG) Urine Urobilinogen Dipstick 1.0 mg/dL (0.2 mg/dL) Urine Leukocyte Esterase Negative (NEG) Urine RBC 0 /HPF (0-2) Urine WBC Occ /HPF (0-4) Urine Squamous Epithelial Cells Occ /LPF Urine Bacteria 0 /HPF (0-FEW) Urine Mucus Mod /LPF Laboratory Tests Test 08/09/18 05:50 08/09/18 05:55 White Blood Count 18.2 x10^3/uL (4.0-11.0) Red Blood Count 4.82 x10^6/uL (4.30-5.70) Hemoglobin 14.7 g/dL (13.0-17.5) Hematocrit 43.8 % (39.0-53.0) Mean Corpuscular Volume 91 fL (79-100) Mean Corpuscular Hemoglobin 31 pg (25-35) Mean Corpuscular Hemoglobin Concent 34 g/dL (31-37) Red Cell Distribution Width 13.1 % (11.5-14.5) Platelet Count 262 x10^3/uL (140-400) Neutrophils (%) (Auto) 87 % (31-73) Lymphocytes (%) (Auto) 7 % (24-48) Monocytes (%) (Auto) 6 % (0-9) Eosinophils (%) (Auto) 0 % (0-3) Basophils (%) (Auto) 0 % (0-3) Neutrophils # (Auto) 15.8 x10^3uL (1.8-7.7) Lymphocytes # (Auto) 1.2 x10^3/uL (1.0-4.8) Monocytes # (Auto) 1.1 x10^3/uL (0.0-1.1) Eosinophils # (Auto) 0.0 x10^3/uL (0.0-0.7) Basophils # (Auto) 0.1 x10^3/uL (0.0-0.2) Sodium Level 134 mmol/L (136-145) Potassium Level 3.6 mmol/L (3.5-5.1) Chloride Level 98 mmol/L (98-107) Carbon Dioxide Level 25 mmol/L (21-32) Anion Gap 11 (6-14) Blood Urea Nitrogen 7 mg/dL (8-26) Creatinine 0.8 mg/dL (0.7-1.3) Estimated GFR (Cockcroft-Gault) 107.1 BUN/Creatinine Ratio 9 (6-20) Glucose Level 117 mg/dL (70-99) Calcium Level 8.8 mg/dL (8.5-10.1) Total Bilirubin 1.4 mg/dL (0.2-1.0) Aspartate Amino Transf (AST/SGOT) 28 U/L (15-37) Alanine Aminotransferase (ALT/SGPT) 70 U/L (16-63) Alkaline Phosphatase 70 U/L (46-116) Total Protein 7.4 g/dL (6.4-8.2) Albumin 3.0 g/dL (3.4-5.0) Albumin/Globulin Ratio 0.7 (1.0-1.7) Lipase 112 U/L (73-393) Medications Current Medications Sodium Chloride 1,000 ml @ 1,000 mls/hr Q1H IV Last administered on 08/08/18at 00:11; Start 08/08/18 at 00:30; Stop 08/08/18 at 01:29; Status DC Prochlorperazine Edisylate (Compazine) 5 mg 1X ONCE IV Last administered on 08/08/18at 00:13; Start 08/08/18 at 00:30; Stop 08/08/18 at 00:31; Status DC Ketorolac Tromethamine (Toradol 30mg Vial) 30 mg 1X ONCE IV Last administered on 08/08/18at 00:13; Start 08/08/18 at 00:30; Stop 08/08/18 at 00:31; Status DC Hyoscyamine (Anaspaz) 0.125 mg ONCE ONCE PO Last administered on 08/08/18at 00: 13; Start 08/08/18 at 00:30; Stop 08/08/18 at 00:31; Status DC Iohexol (Omnipaque 300 Mg/ml) 75 ml 1X ONCE IV ; Start 08/08/18 at 00:30; Stop 08/08/18 at 00:31; Status DC Info (CONTRAST GIVEN -- Rx MONITORING) 1 each PRN DAILY PRN MC SEE COMMENTS; Start 08/08/18 at 00:15; Stop 08/10/18 at 00:14 Morphine Sulfate (Morphine Sulfate) 4 mg 1X ONCE IV Last administered on at 00:36; Start 08/08/18 at 01:00; Stop 08/08/18 at 01:01; Status DC Morphine Sulfate (Morphine Sulfate) 4 mg 1X ONCE IV Last administered on at 03:54; Start 08/08/18 at 04:00; Stop 08/08/18 at 04:01; Status DC Piperacillin Sod/ Tazobactam Sod 3.375 gm/Sodium Chloride 50 ml @ 100 mls/hr 1X ONCE IV Last administered on 08/08/18at 04:14; Start 08/08/18 at 04:30; Stop 08/08/18 at 04:59; Status DC Ondansetron HCl (Zofran) 4 mg PRN Q8HRS PRN IV NAUSEA/VOMITING 1ST CHOICE; Start 08/08/18 at 04:15; Stop 08/09/18 at 04:14; Status DC Morphine Sulfate (Morphine Sulfate) 4 mg PRN Q2HR PRN IV SEVERE PAIN Last administered on 08/09/18at 02:43; Start 08/08/18 at 04:15; Stop 08/09/18 at 04:14; Status DC Sodium Chloride 1,000 ml @ 125 mls/hr Q8H IV Last administered on 08/08/18at 19: 15; Start 08/08/18 at 04:30; Stop 08/09/18 at 04:29; Status DC Acetaminophen (Tylenol) 650 mg PRN Q4HRS PRN PO FEVER; Start 08/08/18 at 04:15; Stop 08/09/18 at 04:14; Status DC Pantoprazole Sodium (PROTONIX VIAL for IV PUSH) 40 mg DAILYAC IVP Last administered on 08/09/18at 08:23; Start 08/08/18 at 10:00 Morphine Sulfate (Morphine Sulfate) 4 mg 1X ONCE IV Last administered on at 13:08; Start 08/08/18 at 12:45; Stop 08/08/18 at 13:00; Status DC Morphine Sulfate (Morphine Sulfate) 4 mg STK-MED ONCE .ROUTE ; Start 08/08/18 at 12:59; Stop 08/08/18 at 13:01; Status DC Ondansetron HCl (Zofran) 4 mg PRN Q6HRS PRN IV NAUSEA/VOMITING; Start 08/09/18 at 07:00; Stop 08/10/18 at 06:59 Fentanyl Citrate (Fentanyl 2ml Vial) 25 mcg PRN Q5MIN PRN IV MILD PAIN; Start 08/09/18 at 07:00; Stop 08/10/18 at 06:59 Fentanyl Citrate (Fentanyl 2ml Vial) 50 mcg PRN Q5MIN PRN IV MODERATE TO SEVERE PAIN; Start 08/09/18 at 07:00; Stop 08/10/18 at 06:59 Morphine Sulfate (Morphine Sulfate) 1 mg PRN Q10MIN PRN IV SEVERE PAIN; Start 08/09/18 at 07:00; Stop 08/10/18 at 06:59 Ringer's Solution 1,000 ml @ 30 mls/hr Q24H IV ; Start 08/09/18 at 07:00; Stop 08/09/18 at 18:59 Lidocaine HCl (Xylocaine-Mpf 1% 2ml Vial) 2 ml PRN 1X PRN ID PRIOR TO IV START ; Start 08/09/18 at 07:00; Stop 08/10/18 at 06:59 Hydromorphone HCl (Dilaudid) 0.5 mg PRN Q10MIN PRN IV SEV PAIN, Second choice; Start 08/09/18 at 07:00; Stop 08/10/18 at 06:59 Prochlorperazine Edisylate (Compazine) 5 mg PACU PRN PRN IV NAUSEA, MRX1; Start 08/09/18 at 07:00; Stop 08/10/18 at 06:59 Morphine Sulfate (Morphine Sulfate) 4 mg PRN Q2HR PRN IV severe pain Last administered on 08/09/18at 08:58; Start 08/09/18 at 06:15 Vitals/I & O Vital Sign - Last 24 Hours 08/08/18 08/08/18 08/08/18 08/08/18 11:04 13:08 13:27 15:00 Temp 98.3 98.4 98.3 98.4 Pulse 64 63 Resp 18 20 18 18 B/P (MAP) 151/93 (112) 146/92 (110) Pulse Ox 95 97 O2 Delivery Room Air Room Air Room Air Room Air 08/08/18 08/08/18 08/08/18 08/08/18 18:42 19:14 20:00 22:21 Temp 98.2 98.2 Pulse 69 Resp 18 B/P (MAP) 142/89 (106) Pulse Ox 98 O2 Delivery Room Air Room Air Room Air Room Air 08/08/18 08/09/18 08/09/18 08/09/18 23:00 02:43 03:00 03:16 Temp 100.3 98.7 100.3 98.7 Pulse 81 74 Resp 20 18 B/P (MAP) 143/80 (101) 139/83 (101) Pulse Ox 90 91 O2 Delivery Room Air Room Air Room Air Room Air 08/09/18 08/09/18 08/09/18 08/09/18 06:26 07:00 07:11 08:58 Temp 98.2 98.2 Pulse 81 Resp 18 16 B/P (MAP) 139/84 (102) Pulse Ox 93 O2 Delivery Room Air Room Air Room Air Room Air Intake and Output 08/08/18 08/08/18 08/09/18 15:01 23:01 07:01 Intake Total 0 ml Balance 0 ml DAVID SANCHEZ K III DO Aug 09, 2018 09:57
--- NOTE | 2018-08-09 11:06 | PDOC ---
Subjective: Subjective: Ongoing RUQ pain - not much better. No vomiting but coughing up some phlegm. Objective: Vital Signs: Vital Signs Date Time Temp Pulse Resp B/P (MAP) Pulse Ox O2 Delivery O2 Flow Rate FiO2 08/09/18 10:44 98.8 88 20 153/88 (109) 93 Room Air 98.8 Labs: Laboratory Tests Test 08/09/18 05:50 08/09/18 05:55 White Blood Count 18.2 x10^3/uL Red Blood Count 4.82 x10^6/uL Hemoglobin 14.7 g/dL Hematocrit 43.8 % Mean Corpuscular Volume 91 fL Mean Corpuscular Hemoglobin 31 pg Mean Corpuscular Hemoglobin Concent 34 g/dL Red Cell Distribution Width 13.1 % Platelet Count 262 x10^3/uL Neutrophils (%) (Auto) 87 % Lymphocytes (%) (Auto) 7 % Monocytes (%) (Auto) 6 % Eosinophils (%) (Auto) 0 % Basophils (%) (Auto) 0 % Neutrophils # (Auto) 15.8 x10^3uL Lymphocytes # (Auto) 1.2 x10^3/uL Monocytes # (Auto) 1.1 x10^3/uL Eosinophils # (Auto) 0.0 x10^3/uL Basophils # (Auto) 0.1 x10^3/uL Sodium Level 134 mmol/L Potassium Level 3.6 mmol/L Chloride Level 98 mmol/L Carbon Dioxide Level 25 mmol/L Anion Gap 11 Blood Urea Nitrogen 7 mg/dL Creatinine 0.8 mg/dL Estimated GFR (Cockcroft-Gault) 107.1 BUN/Creatinine Ratio 9 Glucose Level 117 mg/dL Calcium Level 8.8 mg/dL Total Bilirubin 1.4 mg/dL Aspartate Amino Transf (AST/SGOT) 28 U/L Alanine Aminotransferase (ALT/SGPT) 70 U/L Alkaline Phosphatase 70 U/L Total Protein 7.4 g/dL Albumin 3.0 g/dL Albumin/Globulin Ratio 0.7 Lipase 112 U/L Imaging: HIDA 08/08/18 (pending) PE: GEN: uncomfortable LUNGS: CTAB HEART: RRR ABD: +RUQ discomfort NEURO/PSYCH: A & O �3 A/P: RUQ pain Leukocytosis (worse), mild transaminitis (better), mild hyperbilirubinemia GB distention and wall thickening, hepatic steatosis - CBD 6mm -- HIDA pending, await surgical thoughts. Follow LFTs. KATRIN BURTON Aug 09, 2018 11:06
--- NOTE | 2018-08-09 12:00 | NUR ---
SW following. Discussed with RN, pt having gall bladder removed at 1530 today. Pt is from home with family. SW will continue to follow.
--- NOTE | 2018-08-09 12:54 | RAD ---
Exam performed: Nuclear medicine hepatobiliary scan. History: Right upper quadrant pain Following intravenous administration of 5.5 mCi of Choletec tagged with Tc, sequential gamma camera images of the right upper quadrant of the abdomen were obtained. There is prompt accumulation of radionuclide in the liver which appears to be unremarkable Prompt accumulation in the central intrahepatic biliary radicals,common bile duct and small bowel is noted. The gallbladder is not identified. 4 mg of IV morphine was given additional imaging was performed for 30 minutes with no evidence of radiotracer within the gallbladder. IMPRESSION: Findings suggestive of acute cholecystitis. Electronically signed by: John Perez MD (08/09/2018 12:50 PM) [facility]
[2018-08-09] MEDS: PIPERACILLIN/TAZOBACTAM 3.375 GM in IV NORMAL SALINE 50ML 50 ML IV SCH (13:12)
[2018-08-09] MEDS ORDERED: PROPOFOL 100 ML IV ONE ×2 (13:21→18:25)
[2018-08-09] MEDS ORDERED: DEXAMETHASONE SOD PHOS 20 MG/5 ML VIAL. ONE (13:22)
[2018-08-09] MEDS ORDERED: ONDANSETRON PF 4 MG/2 ML VIAL. ONE (13:22)
[2018-08-09] MEDS ORDERED: LIDOCAINE 2% PF 5 ML VIAL. ONE (13:22)
[2018-08-09] MEDS ORDERED: fentaNYL PF VIAL 100 MCG/2 ML VIAL ONE ×2 (13:23→17:41)
[2018-08-09] MEDS ORDERED: ROCURONIUM 50 MG/5 ML VIAL. ONE (13:23)
--- NOTE | 2018-08-09 14:06 | NUR ---
SW following. SW met with pt to give self pay resources. Pt denied any needs at this time. SW will continue to follow.
[2018-08-09] MEDS ORDERED: IOHEXOL 300 MG/ML 100ML VIAL. ONE (16:53)
[2018-08-09] MEDS ORDERED: SURGICEL HEMOSTAT 4X8 EACH. ONE (16:53)
[2018-08-09] MEDS ORDERED: BUPIVACAINE-EPI 0.25%-1:200000 MPF 30 ML VIAL. ONE (16:53)
[2018-08-09] MEDS: IOHEXOL 300 MG/ML 100ML VIAL. IV ONE (17:40)
[2018-08-09] MEDS ORDERED: KETOROLAC 30 MG/ML INJ FOR OR. INJ ONE ×2 (17:57)
[2018-08-09] MEDS ORDERED: GLYCOPYRROLATE 1 MG/5 ML VIAL. ONE (17:58)
[2018-08-09] MEDS ORDERED: NEOSTIGMINE 10 MG/10 ML VIAL. ONE ×2 (17:58→17:59)
--- NOTE | 2018-08-09 18:33 | PDOC4 ---
Operative Note Operative Note Date: 08/09/2018 Preoperative diagnosis: Acalculous cholecystitis and umbilical hernia Postoperative diagnosis: Same Procedure: Laparoscopic cholecystectomy and umbilical hernia repair Surgeon: Gabriele Specimen: Gallbladder Dictation: The patient is a 42-year-old [facility] with right upper quadrant abdominal pain ultrasound showing thickened gallbladder wall and a HIDA scan showing signs consistent with acute cholecystitis without gallstones. Procedure of laparoscopic cholecystectomy was explained to the patient detail was benefits were also discussed including bleeding infection injury to intra-abdominal contents possibly necessitating further or open operations. The patient seemed to understand gave both verbal and written consent to have the procedure performed. Patient was taken to the operating room placed in supine position general anesthesia was initiated once patient was asleep and intubated his abdomen was prepped and draped usual sterile fashion using ChloraPrep and area in the left upper quadrant was injected with quarter percent Marcaine with epinephrine incision was made limb blade scalpel and a 5 mm Visiport was placed under direct visualization into the abdomen creating a pneumoperitoneum. Once this was complete 5 mm camera was placed within the abdomen and inspected it was noted that there was incarcerated omentum within the small umbilical hernia defect. 5 mm port was placed in the epigastrium 5 mm port was placed in the right lateral abdomen and one in the right mid abdomen using a grasper the omentum was reduced from the hernia defect and a 11 mm port was placed through the hernia defect. The dome of the gallbladder was grasped and retracted cephalad the gallbladder was aspirated of its bile contents to allow easier grasping the dome of the gallbladder was retracted cephalad and the infundibulum gallbladder was grasped retracted laterally exposing the triangle that here tissues the triangle were taken down exposing the cystic duct and cystic artery both were doubly clipped and transected the gallbladder was taken off the liver with hooklike cautery placed in Endo Catch bag remove the umbilicus right upper quadrant was irrigated and suctioned dry hemostasis deemed to be appropriate and the pneumoperitoneum was reduced all ports were removed the hernia defect at the umbilicus was closed with a running 0 Vicryl suture and the skin was approximated all port sites for septic to Monocryl Mastisol Steri-Strips and island dressings were applied. The patient was awakened and extubated in the operating room taken to recovery in stable condition all sponge instrument needle counts listed as correct estimated blood loss 30 mL JESSICA WAGNER MD Aug 09, 2018 18:33
[2018-08-09] MEDS ORDERED: oxyCODONE/APAP 5/325 1 TAB TABLET PO PRN (18:45)
[2018-08-09] MEDS ORDERED: SEVOFLURANE 61 TO 120 MINUTES. IH ONE (18:52)
[2018-08-10] MEDS: PIPERACILLIN/TAZOBACTAM 3.375 GM in IV NORMAL SALINE 50ML 50 ML IV SCH ×3 (00:25→12:41)
[2018-08-10] MEDS: oxyCODONE/APAP 5/325 1 TAB TABLET PO PRN ×2 (01:22→08:23)
[2018-08-10 03:00] VITALS: BP 107/63
[2018-08-10] MEDS: MORPHINE SULFATE 4 MG/ML VIAL. IV PRN (04:49)
[2018-08-10 05:41] LABS: BASO % 0 % (0-3); EOS % 0 % (0-3); HEMATOCRIT 39.3 % (39.0-53.0); HEMOGLOBIN 13.2 g/dL (13.0-17.5); LYMPH # 0.9 x10^3/uL (1.0-4.8); LYMPH % 5 % (24-48); MEAN CORPUSCULAR HEMOGLOBIN 31 pg (25-35); MEAN CORPUSCULAR HGB CONC 34 g/dL (31-37); MEAN CORPUSCULAR VOLUME 92 fL (79-100); MONO # 1.1 x10^3/uL (0.0-1.1); MONO % 6 % (0-9); NEUT # 16.9 x10^3uL (1.8-7.7); NEUT % 90 % (31-73); PLATELET COUNT 256 x10^3/uL (140-400); RED BLOOD COUNT 4.29 x10^6/uL (4.30-5.70); WHITE BLOOD COUNT 18.9 x10^3/uL (4.0-11.0)
[2018-08-10 06:14] LABS: ALBUMIN 2.3 g/dL (3.4-5.0); ALBUMIN/GLOBULIN RATIO 0.5 (1.0-1.7); CALCIUM 8.8 mg/dL (8.5-10.1); CREATININE 1.1 mg/dL (0.7-1.3); GFR 74.1; POTASSIUM 3.8 mmol/L (3.5-5.1); TOTAL BILIRUBIN 1.2 mg/dL (0.2-1.0); TOTAL PROTEIN 6.9 g/dL (6.4-8.2)
[2018-08-10 07:00] VITALS: BP 116/72
[2018-08-10] MEDS: PANTOPRAZOLE IV PUSH 40 MG VIAL. IVP SCH (07:50)
[2018-08-10 11:00] VITALS: BP 121/80
--- NOTE | 2018-08-10 12:20 | PDOC ---
Subjective: Subjective: Some soreness but pain is much better overall. Tolerating PO, asking when he can go home. Objective: Vital Signs: Vital Signs Date Time Temp Pulse Resp B/P (MAP) Pulse Ox O2 Delivery O2 Flow Rate FiO2 08/10/18 11:00 98.3 71 17 121/80 (94) 97 Room Air 98.3 08/10/18 04:49 2.0 Labs: Laboratory Tests Test 08/10/18 04:40 White Blood Count 18.9 x10^3/uL Red Blood Count 4.29 x10^6/uL Hemoglobin 13.2 g/dL Hematocrit 39.3 % Mean Corpuscular Volume 92 fL Mean Corpuscular Hemoglobin 31 pg Mean Corpuscular Hemoglobin Concent 34 g/dL Red Cell Distribution Width 13.0 % Platelet Count 256 x10^3/uL Neutrophils (%) (Auto) 90 % Lymphocytes (%) (Auto) 5 % Monocytes (%) (Auto) 6 % Eosinophils (%) (Auto) 0 % Basophils (%) (Auto) 0 % Neutrophils # (Auto) 16.9 x10^3uL Lymphocytes # (Auto) 0.9 x10^3/uL Monocytes # (Auto) 1.1 x10^3/uL Eosinophils # (Auto) 0.0 x10^3/uL Basophils # (Auto) 0.0 x10^3/uL Sodium Level 132 mmol/L Potassium Level 3.8 mmol/L Chloride Level 97 mmol/L Carbon Dioxide Level 26 mmol/L Anion Gap 9 Blood Urea Nitrogen 15 mg/dL Creatinine 1.1 mg/dL Estimated GFR (Cockcroft-Gault) 74.1 BUN/Creatinine Ratio 14 Glucose Level 133 mg/dL Calcium Level 8.8 mg/dL Total Bilirubin 1.2 mg/dL Aspartate Amino Transf (AST/SGOT) 31 U/L Alanine Aminotransferase (ALT/SGPT) 63 U/L Alkaline Phosphatase 63 U/L Total Protein 6.9 g/dL Albumin 2.3 g/dL Albumin/Globulin Ratio 0.5 PE: GEN: NAD - looks better LUNGS: CTAB HEART: RRR ABD: quiet BS, less tender NEURO/PSYCH: A & O �3 A/P: Acalculous cholecystitis S/p cholecystectomy and umbilical hernia repair Leukocytosis (stable), mild transaminitis (resolved), mild hyperbilirubinemia ( improved) -- Symptoms improved post-op. Continue per surgery. KATRIN BURTON Aug 10, 2018 12:20
[2018-08-10] MEDS ORDERED: POLYETHYLENE GLYCOL 3350 17 GM PACKET. PO PRN (12:30)
--- NOTE | 2018-08-10 12:52 | NUR ---
SW following. Discussed with RN. RN advised no SW needs and anticipates pt may discharge home today. SW has given self pay resources to pt. SW will continue to follow.
--- NOTE | 2018-08-10 13:43 | PDOC ---
PROGRESS NOTES Chief Complaint Chief Complaint Right-Upper Quadrant Abdominal Pain. A calculus cholecystitis status post laparoscopic cholecystectomy Umbilical hernia status post herniorrhaphy History of Present Illness History of Present Illness Patient feeling much better but still with some abdominal discomfort most likely secondary to gas. Patient is passing gas no bowel movement reported as of yet 08/08/18: U/S and CT (abd/pelv) showed gallbladder wall thickening without stones; gallbladder sludge. Vitals Vitals Vital Signs Date Time Temp Pulse Resp B/P (MAP) Pulse Ox O2 Delivery O2 Flow Rate FiO2 08/10/18 12:42 16 Room Air 08/10/18 11:00 98.3 71 121/80 (94) 97 98.3 08/10/18 04:49 2.0 Physical Exam General: Alert, Oriented X3, Cooperative, mild distress Heart: Regular rate, No murmurs Abdomen: Normal bowel sounds, Soft, Other (TTP RUQ) Extremities: No edema Skin: No significant lesion Labs LABS Laboratory Tests Test 08/10/18 04:40 White Blood Count 18.9 x10^3/uL (4.0-11.0) Red Blood Count 4.29 x10^6/uL (4.30-5.70) Hemoglobin 13.2 g/dL (13.0-17.5) Hematocrit 39.3 % (39.0-53.0) Mean Corpuscular Volume 92 fL (79-100) Mean Corpuscular Hemoglobin 31 pg (25-35) Mean Corpuscular Hemoglobin Concent 34 g/dL (31-37) Red Cell Distribution Width 13.0 % (11.5-14.5) Platelet Count 256 x10^3/uL (140-400) Neutrophils (%) (Auto) 90 % (31-73) Lymphocytes (%) (Auto) 5 % (24-48) Monocytes (%) (Auto) 6 % (0-9) Eosinophils (%) (Auto) 0 % (0-3) Basophils (%) (Auto) 0 % (0-3) Neutrophils # (Auto) 16.9 x10^3uL (1.8-7.7) Lymphocytes # (Auto) 0.9 x10^3/uL (1.0-4.8) Monocytes # (Auto) 1.1 x10^3/uL (0.0-1.1) Eosinophils # (Auto) 0.0 x10^3/uL (0.0-0.7) Basophils # (Auto) 0.0 x10^3/uL (0.0-0.2) Sodium Level 132 mmol/L (136-145) Potassium Level 3.8 mmol/L (3.5-5.1) Chloride Level 97 mmol/L (98-107) Carbon Dioxide Level 26 mmol/L (21-32) Anion Gap 9 (6-14) Blood Urea Nitrogen 15 mg/dL (8-26) Creatinine 1.1 mg/dL (0.7-1.3) Estimated GFR (Cockcroft-Gault) 74.1 BUN/Creatinine Ratio 14 (6-20) Glucose Level 133 mg/dL (70-99) Calcium Level 8.8 mg/dL (8.5-10.1) Total Bilirubin 1.2 mg/dL (0.2-1.0) Aspartate Amino Transf (AST/SGOT) 31 U/L (15-37) Alanine Aminotransferase (ALT/SGPT) 63 U/L (16-63) Alkaline Phosphatase 63 U/L (46-116) Total Protein 6.9 g/dL (6.4-8.2) Albumin 2.3 g/dL (3.4-5.0) Albumin/Globulin Ratio 0.5 (1.0-1.7) Review of Systems Review of Systems Pertinent as per history of present illness otherwise 14 point review of system is negative Assessment and Plan Assessmemt and Plan Problems Medical Problems: (1) Pain management Status: Acute Comment Review of Relevant I have reviewed the following items ewa (where applicable) has been applied. Labs Laboratory Tests Test 08/09/18 05:50 08/09/18 05:55 08/10/18 04:40 White Blood Count 18.2 x10^3/uL (4.0-11.0) 18.9 x10^3/uL (4.0-11.0) Red Blood Count 4.82 x10^6/uL (4.30-5.70) 4.29 x10^6/uL (4.30-5.70) Hemoglobin 14.7 g/dL (13.0-17.5) 13.2 g/dL (13.0-17.5) Hematocrit 43.8 % (39.0-53.0) 39.3 % (39.0-53.0) Mean Corpuscular Volume 91 fL (79-100) 92 fL (79-100) Mean Corpuscular Hemoglobin 31 pg (25-35) 31 pg (25-35) Mean Corpuscular Hemoglobin Concent 34 g/dL (31-37) 34 g/dL (31-37) Red Cell Distribution Width 13.1 % (11.5-14.5) 13.0 % (11.5-14.5) Platelet Count 262 x10^3/uL (140-400) 256 x10^3/uL (140-400) Neutrophils (%) (Auto) 87 % (31-73) 90 % (31-73) Lymphocytes (%) (Auto) 7 % (24-48) 5 % (24-48) Monocytes (%) (Auto) 6 % (0-9) 6 % (0-9) Eosinophils (%) (Auto) 0 % (0-3) 0 % (0-3) Basophils (%) (Auto) 0 % (0-3) 0 % (0-3) Neutrophils # (Auto) 15.8 x10^3uL (1.8-7.7) 16.9 x10^3uL (1.8-7.7) Lymphocytes # (Auto) 1.2 x10^3/uL (1.0-4.8) 0.9 x10^3/uL (1.0-4.8) Monocytes # (Auto) 1.1 x10^3/uL (0.0-1.1) 1.1 x10^3/uL (0.0-1.1) Eosinophils # (Auto) 0.0 x10^3/uL (0.0-0.7) 0.0 x10^3/uL (0.0-0.7) Basophils # (Auto) 0.1 x10^3/uL (0.0-0.2) 0.0 x10^3/uL (0.0-0.2) Sodium Level 134 mmol/L (136-145) 132 mmol/L (136-145) Potassium Level 3.6 mmol/L (3.5-5.1) 3.8 mmol/L (3.5-5.1) Chloride Level 98 mmol/L (98-107) 97 mmol/L (98-107) Carbon Dioxide Level 25 mmol/L (21-32) 26 mmol/L (21-32) Anion Gap 11 (6-14) 9 (6-14) Blood Urea Nitrogen 7 mg/dL (8-26) 15 mg/dL (8-26) Creatinine 0.8 mg/dL (0.7-1.3) 1.1 mg/dL (0.7-1.3) Estimated GFR (Cockcroft-Gault) 107.1 74.1 BUN/Creatinine Ratio 9 (6-20) 14 (6-20) Glucose Level 117 mg/dL (70-99) 133 mg/dL (70-99) Calcium Level 8.8 mg/dL (8.5-10.1) 8.8 mg/dL (8.5-10.1) Total Bilirubin 1.4 mg/dL (0.2-1.0) 1.2 mg/dL (0.2-1.0) Aspartate Amino Transf (AST/SGOT) 28 U/L (15-37) 31 U/L (15-37) Alanine Aminotransferase (ALT/SGPT) 70 U/L (16-63) 63 U/L (16-63) Alkaline Phosphatase 70 U/L (46-116) 63 U/L (46-116) Total Protein 7.4 g/dL (6.4-8.2) 6.9 g/dL (6.4-8.2) Albumin 3.0 g/dL (3.4-5.0) 2.3 g/dL (3.4-5.0) Albumin/Globulin Ratio 0.7 (1.0-1.7) 0.5 (1.0-1.7) Lipase 112 U/L (73-393) Laboratory Tests Test 08/10/18 04:40 White Blood Count 18.9 x10^3/uL (4.0-11.0) Red Blood Count 4.29 x10^6/uL (4.30-5.70) Hemoglobin 13.2 g/dL (13.0-17.5) Hematocrit 39.3 % (39.0-53.0) Mean Corpuscular Volume 92 fL (79-100) Mean Corpuscular Hemoglobin 31 pg (25-35) Mean Corpuscular Hemoglobin Concent 34 g/dL (31-37) Red Cell Distribution Width 13.0 % (11.5-14.5) Platelet Count 256 x10^3/uL (140-400) Neutrophils (%) (Auto) 90 % (31-73) Lymphocytes (%) (Auto) 5 % (24-48) Monocytes (%) (Auto) 6 % (0-9) Eosinophils (%) (Auto) 0 % (0-3) Basophils (%) (Auto) 0 % (0-3) Neutrophils # (Auto) 16.9 x10^3uL (1.8-7.7) Lymphocytes # (Auto) 0.9 x10^3/uL (1.0-4.8) Monocytes # (Auto) 1.1 x10^3/uL (0.0-1.1) Eosinophils # (Auto) 0.0 x10^3/uL (0.0-0.7) Basophils # (Auto) 0.0 x10^3/uL (0.0-0.2) Sodium Level 132 mmol/L (136-145) Potassium Level 3.8 mmol/L (3.5-5.1) Chloride Level 97 mmol/L (98-107) Carbon Dioxide Level 26 mmol/L (21-32) Anion Gap 9 (6-14) Blood Urea Nitrogen 15 mg/dL (8-26) Creatinine 1.1 mg/dL (0.7-1.3) Estimated GFR (Cockcroft-Gault) 74.1 BUN/Creatinine Ratio 14 (6-20) Glucose Level 133 mg/dL (70-99) Calcium Level 8.8 mg/dL (8.5-10.1) Total Bilirubin 1.2 mg/dL (0.2-1.0) Aspartate Amino Transf (AST/SGOT) 31 U/L (15-37) Alanine Aminotransferase (ALT/SGPT) 63 U/L (16-63) Alkaline Phosphatase 63 U/L (46-116) Total Protein 6.9 g/dL (6.4-8.2) Albumin 2.3 g/dL (3.4-5.0) Albumin/Globulin Ratio 0.5 (1.0-1.7) Medications Current Medications Sodium Chloride 1,000 ml @ 1,000 mls/hr Q1H IV Last administered on 08/08/18at 00:11; Start 08/08/18 at 00:30; Stop 08/08/18 at 01:29; Status DC Prochlorperazine Edisylate (Compazine) 5 mg 1X ONCE IV Last administered on 08/08/18at 00:13; Start 08/08/18 at 00:30; Stop 08/08/18 at 00:31; Status DC Ketorolac Tromethamine (Toradol 30mg Vial) 30 mg 1X ONCE IV Last administered on 08/08/18at 00:13; Start 08/08/18 at 00:30; Stop 08/08/18 at 00:31; Status DC Hyoscyamine (Anaspaz) 0.125 mg ONCE ONCE PO Last administered on 08/08/18at 00: 13; Start 08/08/18 at 00:30; Stop 08/08/18 at 00:31; Status DC Iohexol (Omnipaque 300 Mg/ml) 75 ml 1X ONCE IV Last administered on 08/09/18at 17:40; Start 08/08/18 at 00:30; Stop 08/08/18 at 00:31; Status DC Info (CONTRAST GIVEN -- Rx MONITORING) 1 each PRN DAILY PRN MC SEE COMMENTS; Start 08/08/18 at 00:15; Stop 08/10/18 at 00:14; Status DC Morphine Sulfate (Morphine Sulfate) 4 mg 1X ONCE IV Last administered on at 00:36; Start 08/08/18 at 01:00; Stop 08/08/18 at 01:01; Status DC Morphine Sulfate (Morphine Sulfate) 4 mg 1X ONCE IV Last administered on at 03:54; Start 08/08/18 at 04:00; Stop 08/08/18 at 04:01; Status DC Piperacillin Sod/ Tazobactam Sod 3.375 gm/Sodium Chloride 50 ml @ 100 mls/hr 1X ONCE IV Last administered on 08/08/18at 04:14; Start 08/08/18 at 04:30; Stop 08/08/18 at 04:59; Status DC Ondansetron HCl (Zofran) 4 mg PRN Q8HRS PRN IV NAUSEA/VOMITING 1ST CHOICE; Start 08/08/18 at 04:15; Stop 08/09/18 at 04:14; Status DC Morphine Sulfate (Morphine Sulfate) 4 mg PRN Q2HR PRN IV SEVERE PAIN Last administered on 08/09/18at 02:43; Start 08/08/18 at 04:15; Stop 08/09/18 at 04:14; Status DC Sodium Chloride 1,000 ml @ 125 mls/hr Q8H IV Last administered on 08/08/18at 19: 15; Start 08/08/18 at 04:30; Stop 08/09/18 at 04:29; Status DC Acetaminophen (Tylenol) 650 mg PRN Q4HRS PRN PO FEVER; Start 08/08/18 at 04:15; Stop 08/09/18 at 04:14; Status DC Pantoprazole Sodium (PROTONIX VIAL for IV PUSH) 40 mg DAILYAC IVP Last administered on 08/10/18at 07:50; Start 08/08/18 at 10:00; Stop 08/10/18 at 12:22; Status DC Morphine Sulfate (Morphine Sulfate) 4 mg 1X ONCE IV Last administered on at 13:08; Start 08/08/18 at 12:45; Stop 08/08/18 at 13:00; Status DC Morphine Sulfate (Morphine Sulfate) 4 mg STK-MED ONCE .ROUTE ; Start 08/08/18 at 12:59; Stop 08/08/18 at 13:01; Status DC Ondansetron HCl (Zofran) 4 mg PRN Q6HRS PRN IV NAUSEA/VOMITING; Start 08/09/18 at 07:00; Stop 08/10/18 at 06:59; Status DC Fentanyl Citrate (Fentanyl 2ml Vial) 25 mcg PRN Q5MIN PRN IV MILD PAIN; Start 08/09/18 at 07:00; Stop 08/10/18 at 06:59; Status DC Fentanyl Citrate (Fentanyl 2ml Vial) 50 mcg PRN Q5MIN PRN IV MODERATE TO SEVERE PAIN; Start 08/09/18 at 07:00; Stop 08/10/18 at 06:59; Status DC Morphine Sulfate (Morphine Sulfate) 1 mg PRN Q10MIN PRN IV SEVERE PAIN; Start 08/09/18 at 07:00; Stop 08/10/18 at 06:59; Status DC Ringer's Solution 1,000 ml @ 30 mls/hr Q24H IV ; Start 08/09/18 at 07:00; Stop 08/09/18 at 18:59; Status DC Lidocaine HCl (Xylocaine-Mpf 1% 2ml Vial) 2 ml PRN 1X PRN ID PRIOR TO IV START ; Start 08/09/18 at 07:00; Stop 08/10/18 at 06:59; Status DC Hydromorphone HCl (Dilaudid) 0.5 mg PRN Q10MIN PRN IV SEV PAIN, Second choice; Start 08/09/18 at 07:00; Stop 08/10/18 at 06:59; Status DC Prochlorperazine Edisylate (Compazine) 5 mg PACU PRN PRN IV NAUSEA, MRX1; Start 08/09/18 at 07:00; Stop 08/10/18 at 06:59; Status DC Morphine Sulfate (Morphine Sulfate) 4 mg PRN Q2HR PRN IV severe pain Last administered on 08/10/18at 04:49; Start 08/09/18 at 06:15 Piperacillin Sod/ Tazobactam Sod 3.375 gm/Sodium Chloride 50 ml @ 100 mls/hr Q6HRS IV Last administered on 08/10/18at 12:41; Start 08/09/18 at 12:30 Propofol 100 ml @ As Directed STK-MED ONCE IV ; Start 08/09/18 at 13:21; Stop at 13:23; Status DC Dexamethasone Sodium Phosphate (Decadron) 20 mg STK-MED ONCE .ROUTE ; Start 08/09 at 13:22; Stop 08/09/18 at 13:24; Status DC Lidocaine HCl (Lidocaine Pf 2% Vial) 5 ml STK-MED ONCE .ROUTE ; Start 08/09/18 at 13:22; Stop 08/09/18 at 13:25; Status DC Ondansetron HCl (Zofran) 4 mg STK-MED ONCE .ROUTE ; Start 08/09/18 at 13:22; Stop 08/09/18 at 13:25; Status DC Rocuronium [place] (Zemuron) 50 mg STK-MED ONCE .ROUTE ; Start 08/09/18 at 13:23 ; Stop 08/09/18 at 13:25; Status DC Fentanyl Citrate (Fentanyl 2ml Vial) 100 mcg STK-MED ONCE .ROUTE ; Start at 13:23; Stop 08/09/18 at 13:25; Status DC Iohexol (Omnipaque 300 Mg/ml) 100 ml STK-MED ONCE .ROUTE ; Start 08/09/18 at 16: 53; Stop 08/09/18 at 16:55; Status DC Cellulose (Surgicel Hemostat 4x8) 1 each STK-MED ONCE .ROUTE ; Start 08/09/18 at 16:53; Stop 08/09/18 at 16:55; Status DC Bupivacaine HCl/ Epinephrine Bitart (Sensorcaine-Epi 0.25%-1:[id number] Mpf) 30 ml STK-MED ONCE .ROUTE Last administered on 08/09/18at 17:39; Start 08/09/18 at 16:53 ; Stop 08/09/18 at 16:55; Status DC Fentanyl Citrate (Fentanyl 2ml Vial) 100 mcg STK-MED ONCE .ROUTE ; Start at 17:41; Stop 08/09/18 at 17:43; Status DC Ketorolac Tromethamine (Toradol For Or Only) 30 mg STK-MED ONCE INJ ; Start 08/09 at 17:57; Stop 08/09/18 at 17:59; Status DC Ketorolac Tromethamine (Toradol For Or Only) 30 mg STK-MED ONCE INJ ; Start 08/09 at 17:57; Stop 08/09/18 at 17:59; Status DC Neostigmine Methylsulfate (Bloxiverz) 10 mg STK-MED ONCE .ROUTE ; Start 08/09/18 at 17:58; Stop 08/09/18 at 18:00; Status DC Glycopyrrolate (Robinul) 1 mg STK-MED ONCE .ROUTE ; Start 08/09/18 at 17:58; Stop 08/09/18 at 18:00; Status DC Neostigmine Methylsulfate (Bloxiverz) 10 mg STK-MED ONCE .ROUTE ; Start 08/09/18 at 17:59; Stop 08/09/18 at 18:01; Status DC Propofol 100 ml @ As Directed STK-MED ONCE IV ; Start 08/09/18 at 18:25; Stop at 18:27; Status DC Ketorolac Tromethamine (Toradol 15mg Vial) 15 mg Q6HRS IV ; Start 08/10/18 at 19: 00; Stop 08/10/18 at 19:01 Oxycodone/ Acetaminophen (Percocet 5/325) 1 tab PRN Q4HRS PRN PO MILD PAIN Last administered on 08/10/18at 08:23; Start 08/09/18 at 18:45 Oxycodone/ Acetaminophen (Percocet 5/325) 2 tab PRN Q4HRS PRN PO MODERATE- SEVERE PAIN Last administered on 08/10/18at 12:42; Start 08/09/18 at 18:45 Sevoflurane (Ultane) 60 ml STK-MED ONCE IH ; Start 08/09/18 at 18:52; Stop at 18:55; Status DC Polyethylene Glycol (miraLAX PACKET) 17 gm PRN DAILY PRN PO CONSTIPATION; Start 08/10/18 at 12:30 Vitals/I & O Vital Sign - Last 24 Hours 08/09/18 08/09/18 08/09/18 08/09/18 14:29 14:40 15:35 18:38 Temp 98.1 98.8 98.1 98.8 Pulse 82 86 101 Resp 14 20 18 22 B/P (MAP) 155/89 (111) 141/87 113/51 Pulse Ox 94 93 94 O2 Delivery Room Air Room Air Room Air Simple Mask O2 Flow Rate 8 08/09/18 08/09/18 08/09/18 08/09/18 18:38 18:55 19:13 19:30 Temp 98.8 98.8 98.8 98.8 98.8 98.8 Pulse 86 90 80 Resp 22 22 18 B/P (MAP) 114/58 100/52 101/59 Pulse Ox 95 95 95 O2 Delivery Mask Simple Mask Room Air Nasal Cannula O2 Flow Rate 8 8 2 08/09/18 08/09/18 08/09/18 08/09/18 19:45 20:00 20:00 20:15 Temp 98.8 99.5 98.8 99.5 Pulse 80 59 88 Resp 20 18 18 B/P (MAP) 102/60 94/52 (66) 104/42 (62) Pulse Ox 95 93 93 O2 Delivery Nasal Cannula Room Air Nasal Cannula Room Air O2 Flow Rate 2.0 2.0 08/09/18 08/09/18 08/09/18 08/09/18 20:30 20:39 20:45 21:09 Pulse 84 84 Resp 18 18 B/P (MAP) 104/45 (64) 102/54 (70) Pulse Ox 93 95 93 95 O2 Delivery Room Air Nasal Cannula Room Air Nasal Cannula O2 Flow Rate 2.0 2.0 08/09/18 08/09/18 08/09/18 08/10/18 21:45 22:15 22:15 01:22 Temp 99.3 99.3 Pulse 79 83 80 Resp 18 18 18 B/P (MAP) 110/63 (79) 107/62 (77) 118/73 (88) Pulse Ox 92 93 92 92 O2 Delivery Room Air Room Air Room Air Nasal Cannula O2 Flow Rate 2.0 08/10/18 08/10/18 08/10/18 08/10/18 03:00 04:49 07:00 08:00 Temp 99.3 98.6 99.3 98.6 Pulse 82 74 Resp 17 B/P (MAP) 107/63 (78) 116/72 (87) Pulse Ox 92 92 98 O2 Delivery Room Air Nasal Cannula Room Air Nasal Cannula O2 Flow Rate 2.0 08/10/18 08/10/18 08/10/18 08/10/18 08:23 09:23 11:00 12:42 Temp 98.3 98.3 Pulse 71 Resp 18 14 17 16 B/P (MAP) 121/80 (94) Pulse Ox 97 O2 Delivery Room Air Room Air Room Air Room Air Intake and Output 08/09/18 08/09/18 08/10/18 15:01 23:01 07:01 Intake Total 1000 ml Output Total 20 ml 250 ml Balance 980 ml -250 ml LI DUMONT MD Aug 10, 2018 13:43
[2018-08-10] MEDS ORDERED: OXYC1TAB15 PO (14:16)
[2018-08-10] MEDS ORDERED: CIPR500T94 PO (14:16)
--- NOTE | 2018-08-10 14:20 | PDOC3 ---
Discharge Summary Visit Information Date of Admission: Aug 09, 2018 Date of Discharge: Aug 10, 2018 Admitting Diagnosis: Abdominal pain Admitting Diagnosis Comment: Symptomatic cholelithiasis status post cholecystectomy Final Diagnosis Problems Medical Problems: (1) Pain management Status: Acute Brief Hospital Course Allergies Allergies Coded Allergies Type Severity Reaction Last Updated Verified No Known Drug Allergies 08/07/18 No Vital Signs Vital Signs Date Time Temp Pulse Resp B/P (MAP) Pulse Ox O2 Delivery O2 Flow Rate FiO2 08/10/18 12:42 16 Room Air 08/10/18 11:00 98.3 71 121/80 (94) 97 98.3 08/10/18 04:49 2.0 Lab Results Laboratory Tests Test 08/09/18 05:50 08/09/18 05:55 08/10/18 04:40 White Blood Count 18.2 x10^3/uL (4.0-11.0) 18.9 x10^3/uL (4.0-11.0) Red Blood Count 4.82 x10^6/uL (4.30-5.70) 4.29 x10^6/uL (4.30-5.70) Hemoglobin 14.7 g/dL (13.0-17.5) 13.2 g/dL (13.0-17.5) Hematocrit 43.8 % (39.0-53.0) 39.3 % (39.0-53.0) Mean Corpuscular Volume 91 fL (79-100) 92 fL (79-100) Mean Corpuscular Hemoglobin 31 pg (25-35) 31 pg (25-35) Mean Corpuscular Hemoglobin Concent 34 g/dL (31-37) 34 g/dL (31-37) Red Cell Distribution Width 13.1 % (11.5-14.5) 13.0 % (11.5-14.5) Platelet Count 262 x10^3/uL (140-400) 256 x10^3/uL (140-400) Neutrophils (%) (Auto) 87 % (31-73) 90 % (31-73) Lymphocytes (%) (Auto) 7 % (24-48) 5 % (24-48) Monocytes (%) (Auto) 6 % (0-9) 6 % (0-9) Eosinophils (%) (Auto) 0 % (0-3) 0 % (0-3) Basophils (%) (Auto) 0 % (0-3) 0 % (0-3) Neutrophils # (Auto) 15.8 x10^3uL (1.8-7.7) 16.9 x10^3uL (1.8-7.7) Lymphocytes # (Auto) 1.2 x10^3/uL (1.0-4.8) 0.9 x10^3/uL (1.0-4.8) Monocytes # (Auto) 1.1 x10^3/uL (0.0-1.1) 1.1 x10^3/uL (0.0-1.1) Eosinophils # (Auto) 0.0 x10^3/uL (0.0-0.7) 0.0 x10^3/uL (0.0-0.7) Basophils # (Auto) 0.1 x10^3/uL (0.0-0.2) 0.0 x10^3/uL (0.0-0.2) Sodium Level 134 mmol/L (136-145) 132 mmol/L (136-145) Potassium Level 3.6 mmol/L (3.5-5.1) 3.8 mmol/L (3.5-5.1) Chloride Level 98 mmol/L (98-107) 97 mmol/L (98-107) Carbon Dioxide Level 25 mmol/L (21-32) 26 mmol/L (21-32) Anion Gap 11 (6-14) 9 (6-14) Blood Urea Nitrogen 7 mg/dL (8-26) 15 mg/dL (8-26) Creatinine 0.8 mg/dL (0.7-1.3) 1.1 mg/dL (0.7-1.3) Estimated GFR (Cockcroft-Gault) 107.1 74.1 BUN/Creatinine Ratio 9 (6-20) 14 (6-20) Glucose Level 117 mg/dL (70-99) 133 mg/dL (70-99) Calcium Level 8.8 mg/dL (8.5-10.1) 8.8 mg/dL (8.5-10.1) Total Bilirubin 1.4 mg/dL (0.2-1.0) 1.2 mg/dL (0.2-1.0) Aspartate Amino Transf (AST/SGOT) 28 U/L (15-37) 31 U/L (15-37) Alanine Aminotransferase (ALT/SGPT) 70 U/L (16-63) 63 U/L (16-63) Alkaline Phosphatase 70 U/L (46-116) 63 U/L (46-116) Total Protein 7.4 g/dL (6.4-8.2) 6.9 g/dL (6.4-8.2) Albumin 3.0 g/dL (3.4-5.0) 2.3 g/dL (3.4-5.0) Albumin/Globulin Ratio 0.7 (1.0-1.7) 0.5 (1.0-1.7) Lipase 112 U/L (73-393) Laboratory Tests Test 08/10/18 04:40 White Blood Count 18.9 x10^3/uL (4.0-11.0) Red Blood Count 4.29 x10^6/uL (4.30-5.70) Hemoglobin 13.2 g/dL (13.0-17.5) Hematocrit 39.3 % (39.0-53.0) Mean Corpuscular Volume 92 fL (79-100) Mean Corpuscular Hemoglobin 31 pg (25-35) Mean Corpuscular Hemoglobin Concent 34 g/dL (31-37) Red Cell Distribution Width 13.0 % (11.5-14.5) Platelet Count 256 x10^3/uL (140-400) Neutrophils (%) (Auto) 90 % (31-73) Lymphocytes (%) (Auto) 5 % (24-48) Monocytes (%) (Auto) 6 % (0-9) Eosinophils (%) (Auto) 0 % (0-3) Basophils (%) (Auto) 0 % (0-3) Neutrophils # (Auto) 16.9 x10^3uL (1.8-7.7) Lymphocytes # (Auto) 0.9 x10^3/uL (1.0-4.8) Monocytes # (Auto) 1.1 x10^3/uL (0.0-1.1) Eosinophils # (Auto) 0.0 x10^3/uL (0.0-0.7) Basophils # (Auto) 0.0 x10^3/uL (0.0-0.2) Sodium Level 132 mmol/L (136-145) Potassium Level 3.8 mmol/L (3.5-5.1) Chloride Level 97 mmol/L (98-107) Carbon Dioxide Level 26 mmol/L (21-32) Anion Gap 9 (6-14) Blood Urea Nitrogen 15 mg/dL (8-26) Creatinine 1.1 mg/dL (0.7-1.3) Estimated GFR (Cockcroft-Gault) 74.1 BUN/Creatinine Ratio 14 (6-20) Glucose Level 133 mg/dL (70-99) Calcium Level 8.8 mg/dL (8.5-10.1) Total Bilirubin 1.2 mg/dL (0.2-1.0) Aspartate Amino Transf (AST/SGOT) 31 U/L (15-37) Alanine Aminotransferase (ALT/SGPT) 63 U/L (16-63) Alkaline Phosphatase 63 U/L (46-116) Total Protein 6.9 g/dL (6.4-8.2) Albumin 2.3 g/dL (3.4-5.0) Albumin/Globulin Ratio 0.5 (1.0-1.7) Brief Hospital Course Mr. Yoder is a 42 old male who presented with abdominal pain. The patient was found to have cholelithiasis and given the progressive nature office symptoms and discomfort he was taken today operating room where he had a laparoscopic cholecystectomy. The patient also had a hernia repair in the process, patient tolerated the procedure well and he was able to the advanced to a clear liquid diet shortly after. He has been able to eat solid food now on his postop day # 1. He was deemed appropriate from the surgical standpoint of view to transition home and follow-up in one week in the outpatient setting. He will receive antibiotic Cipro Floxin for 5 days and also pain management with oxycodone acetaminophen. Signs and symptoms of alarm were discussed prior to discharge CONCERNS WERE ADDRESSED TO THE BEST OF MY ABILITIES Discharge Information Condition at Discharge: Improved Follow Up: Weeks Disposition/Orders: D/C to Home Scheduled Ciprofloxacin Hcl (Cipro) 500 Mg Tablet, 500 MG PO BID for cholelithiasis for 5 Days, #10 Ref 0 Prescribed by: LI DUMONT MD on 08/10/18 1416 Scheduled PRN Oxycodone/Apap 5-325 (Percocet 5-325 Mg Tablet ) 1 Each Tablet, 1 TAB PO PRN Q4HRS PRN for MILD PAIN for 3 Days, #25 Prescribed by: LI DUMONT MD on 08/10/18 1416 LI DUMONT MD Aug 10, 2018 14:20
--- NOTE | 2018-08-10 15:17 | NUR ---
Discharge Note: [facility] Discharge instructions and discharge home medications reviewed with Patient and a copy given. All questions have been answered and understanding verbalized. The following instructions and handouts were given: after surgery care, medications, activity, diet, follow up, when to seek medical attention Discontinued lines and drains: right hand IV dc'd catheter intact. Patient discharged to home with family, private vehicle. pt stable upon DC.
[2018-08-10] MEDS ORDERED: KETOROLAC 15 MG/ML VIAL. IV SCH (19:00)
[2018-08-10] MEDS ORDERED: LACTOBACILLUS RHAMNOSUS GG 1 CAPSULE. PO SCH (21:00)
--- NOTE | 2018-08-12 14:10 | PATHOLOGY ---
[facility] Accession Number: [id number] . 01 Material submitted: . GALLBLADDER . 01 Clinical history: . Acalculus cholelithiasis . 02 Diagnosis: Gallbladder, laparoscopic cholecystectomy: - Bile sludge. - Acute necrotizing and chronic cholecystitis. 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 P/08/12/2018 . 02 Comment: There is no evidence of malignancy. (JPM:[place] [employer] 08/12/2018) . 02 Electronically signed: . Giancarlo Sheffield MD, Pathologist NPI- [id number] . 01 Gross description: . Received in formalin labeled "Jm Yoder, gallbladder," is a large, ragged-appearing gallbladder measuring 10.7 x 5.0 x 2.4 cm in greatest dimensions with attached fragments of yellow, lobulated adipose tissue. The serosal surface is smooth to shaggy and pale alston to dusky goncalves-brown in appearance. Opening the specimen reveals a shaggy, light green to dark brown mucosa measuring up to 0.2 cm in thickness with a gallbladder wall thickness of up to 0.5 cm. No polyps or nodules are noted grossly. A granular, dark alston-brown sludge is adherent to the gallbladder mucosa. No grossly distinct calculi are present within the specimen or specimen container. Sectioning through the attached adipose tissue reveals a possible lymph node measuring 1.0 cm in maximum dimension on cut surface. Sectioning through the lymph node reveals firm, pale alston to slightly hemorrhagic cut surfaces. Back Up Worker sections of the gallbladder infundibulum, body and fundus are submitted in cassette A1. The possible lymph node is trisected and submitted entirely in cassette A2. (DAC; 08/11/2018) XDC/XDC . 02 Pathologist provided ICD-10: K81.2 . 02 CPT . 396919 Specimen Comment: A courtesy copy of this report has been sent to Specimen Comment: [phone], . Specimen Comment: Report sent to / DR STARR Specimen Comment: A duplicate report has been generated due to demographic updates. Performed at: 01 [facility] [address] [facility] [address], [place] [id number] MD Allen Hayes MD Phone: [phone] Performed at: 02 [facility] [address] [place], [place] [id number] MD Giancarlo Sheffield MD Phone: [phone]
== END 2018-08-10 15:00 | disposition home or self-care (01) | DRG 418 ==
LOC: ER 08-08 00:23 → 5 SOUTH 08-08 04:30
PROVIDERS: ADMIT Family Medicine; ATTEND Family Medicine
PROC: 0WQF4ZZ Repair Abdominal Wall, Percutaneous Endoscopic Approach (ICD-10-PCS; 2018-08-09)
PROC: 0FT44ZZ Resection of Gallbladder, Percutaneous Endoscopic Approach (ICD-10-PCS; principal; 2018-08-09 15:30)
DX: K81.0 Acute cholecystitis (principal); K82.0 Obstruction of gallbladder; K42.9 Umbilical hernia without obstruction or gangrene; K76.0 Fatty (change of) liver, not elsewhere classified; K82.8 Other specified diseases of gallbladder; D72.829 Elevated white blood cell count, unspecified; R74.0 Nonspecific elevation of levels of transaminase and lactic acid dehydrogenase [LDH]; E80.6 Other disorders of bilirubin metabolism; Z82.49 Family history of ischemic heart disease and other diseases of the circulatory system; Z79.899 Other long term (current) drug therapy
CPT/HCPCS: 36415; 74176; 76705; 78227; 80053; 81001; 83690; 85007; 85025; 85610; 88304; 96361; 96365; A7015; A9537; C9113; J0780; J1100; J1885; J2001; J2270; J2405; J2543; J2704; J2710; J3010; J3490; J7030; J7120; Q9967; 99285-25; G0378